=== PATIENT | male | born 1970 | race Caucasian/White ===

== ENCOUNTER 2021-04-28 00:34 | Emergency (ER) | payer OTHER, SELFPAY ==
[2021-04-28] VITALS (7 sets, daily range): BP systolic 137–192; BP diastolic 78–112; PULSE 77–87; RESP 18–24; TEMP 37.1–38; O2SAT 96–98; BMI 33.3
--- NOTE | 2021-04-28 01:09 | CTR_ITS ---
PROCEDURE INFORMATION: Exam: CT Abdomen And Pelvis With Contrast Exam date and time: 04/28/2021 1:09 AM Age: 50 years old Clinical indication: Abdominal pain; Localized; Patient HX: Lower abd pain with diarrhea. TECHNIQUE: Imaging protocol: Computed tomography of the abdomen and pelvis with contrast. Radiation optimization: All CT scans at this facility use at least one of these dose optimization techniques: automated exposure control; mA and/or kV adjustment per patient size (includes targeted exams where dose is matched to clinical indication); or iterative reconstruction. Contrast material: OMNI 300; Contrast volume: 95 ml; Contrast route: INTRAVENOUS (IV); COMPARISON: MRI Lumbar Spine w/o [id number] 04/12/2015 3:52 PM RADIATION DOSE METRICS: Total DLP (mGy-cm): 1925.21 FINDINGS: Mediastinal space: Small hiatal hernia. Small hiatal hernia. Liver: No mass. Gallbladder and bile ducts: No calcified stones. No ductal dilation. Pancreas: No ductal dilation. Spleen: No splenomegaly. Adrenal glands: Normal. No mass. Kidneys and ureters: No hydronephrosis. Stomach and bowel: Colonic diverticulosis with questionable mild thickening of the sigmoid colon. Findings may be due to limited colonic distention or possibly early changes of acute diverticulitis. No dilated bowel loops. No high-grade obstruction. Appendix: No evidence of appendicitis. Intraperitoneal space: There is mild nonspecific mesenteric stranding noted in the lower abdomen/pelvis. Vasculature: No abdominal aortic aneurysm. Lymph nodes: No enlarged lymph nodes. Urinary bladder: Unremarkable as visualized. Reproductive: Prostate gland appears slightly enlarged. Bones/joints: Degenerative changes of the lumbar spine. Soft tissues: Unremarkable. CT/CT abdomen pelvis w con* [id number] IMPRESSION: Colonic diverticulosis with questionable mild thickening of the sigmoid colon. Findings may be due to limited colonic distention or possibly early changes of acute diverticulitis. Radiation Dose CTDIVOL = (mGy): DLP = 1925.21 (mGy-cm)
--- NOTE | 2021-04-28 01:38 | ED_ITS ---
HPI - General Adult General: Chief complaint: Abdominal Pain Stated complaint: abd pain Time Seen by Provider: 04/28/21 00:57 History of Present Illness: HPI narrative: Patient is a 50-year-old male with a history of diabetes, hypertension who presents the emergency room with complaints of worsening lower abdominal pain x 3 days. Patient says that the pain started 3 days ago on Sunday shortly after having diarrhea.Since then, patient reports significantly worsening lower abdominal pain R>L. +Fever today. Patient denies any problem with passing gas, bowel movement, denies any hematochezia or melena. Patient denies any nausea vomiting, but has reported worsening pain. Patient presents emergency room for evaluation. Denies any symptoms including penile discharge or testicular pain. He has no prior abdominal surgical no history of kidney stones. Denies any chest pain, shortness of breath, palpitation, lightheadedness, fatigue at this time Onset: 3 days ago Duration:3 days Location:home Severity: moderate Review of Systems Narrative: Constitutional: +fever, no chills. HEENT: No vision changes CV: No chest pain, no palpitations PULM: no cough, no dyspnea. GI: +lower abdominal pain, no N/V/D. : No dysuria MSKEL: No muscle pain SKIN: No new rashes, no lesions. NEURO: No headache, no focal weakness. HEME: No visible bruises PSYCH: Normal mood Physical Exam Narrative: EXAM NARRATIVE: Head: Atraumatic Eyes: PERRL, conjunctiva without injection ENT: Mucous membrane moist NECK: Supple, ROM intact LUNGS: LCTAB, no crackles/rhonchi CV: RRR ABDOMEN: Soft, +moderate RLQ tenderness to palpation, +mild LLQ abdominal tend erness to palpation, NO guarding rebound, guarding, rigidity. No CVA tenderness to percussion. Neg Moreno/Neg McBurney's point tenderness, no suprabupic tenderness to palpation. EXTREMITY: Normal ROM SKIN: No rash or erythema NEURO: Awake and alert, no focal motor deficits PSYCH: Normal mood and affect : Normal external genitalia, Testicles non-tender b/l, no erythema. Course Vital Signs: Vital signs: Vital Signs Temperature 98.8 F 04/28/21 04:19 Pulse Rate 77 04/28/21 04:19 Respiratory Rate 18 04/28/21 04:19 Blood Pressure 139/78 04/28/21 04:19 Pulse Oximetry 98 04/28/21 04:19 MDM - General Adult MDM Narrative: Medical decision making narrative: 50-year-old male presenting to the emergency room with complaints of diarrhea, worsening lower abdominal pain. On exam, patient is hemodynamically stable noted to be febrile to 100.4. On exam, patient has moderate tenderness to palpation in the right lower quadr ant. No guarding or rebound tenderness to exam within normal limit. Laboratory work-up showed white count 11.8. CT abdomen pelvis showed early diverticulitis. Patient tolerated p.o. in the emergency room. Fever improved with Tylenol. Pain improved in the ED with pain control. Rx: augmentin BID x 7 days, zofran PRN nausea/vomiting Disposition: Discharge. Patient counseled regarding diagnostic impression, treatment plan. Patient given ED strict return precautions to return for continuation, worsening, or development of new symptoms. Instructed to f/u w/ PCP regarding symptoms today. Patient verbalized understanding. Lab Data: Labs: Lab Results 04/28/21 04/28/21 04/28/21 01:30 01:30 01:30 WBC 11.8 10^3/uL H 10 ^3/uL (4.0-10.0) RBC 5.11 10^6/uL 10^6 /uL (4.1-5.3) Hgb 15.2 g/dL g/dL (11.7-16.6) Hct 45.5 % % (42.0-52.0) MCV 89.0 fl fl (80-94) MCH 29.7 pg pg (28.0-34.0) MCHC 33.4 g/dL g/dL (30.0-36.0) RDW 11.7 % L % (12.1-15.1) Plt Count 289 10^3/cmm 10^3 /cmm (130-400) MPV 10.2 fL fL (7.4-10.4) Neut % (Auto) 78.8 % % Lymph % (Auto) 13.8 % % [place] % (Auto) 5.8 % % Eos % (Auto) 0.8 % % Baso % (Auto) 0.4 % % Neut # (Auto) 9.31 10^3/uL H 10 ^3/uL (1.8-7.7) Lymph # (Auto) 1.6 10^3/uL 10^3/ uL (0.8-4.8) [place] # (Auto) 0.7 10^3/uL 10^3/ uL (0.2-0.9) Eos # (Auto) 0.1 10^3/uL 10^3/ uL (0.0-0.8) Baso # (Auto) 0.1 10^3/uL 10^3/ uL (0.0-0.1) Nucleated RBC % (a uto) 0 % % Nucleated RBCs # 0.0 /100WBC /100W BC Sodium 130 mmol/L L mmol /L (136-145) Potassium 4.1 mmol/L mmol/L (3.5-5.1) Chloride 94 mmol/L L mmol/ L (98-107) Carbon Dioxide 25 mmol/L mmol/L (22-29) Anion Gap 15.1 (5-19) BUN 18 mg/dL mg/dL (6-20) Creatinine 0.8 mg/dL mg/dL (0.7-1.2) GFR Calculation 101.5 mL/min mL/m in (90-130) Glucose 251 mg/dL H mg/dL (65-115) Calculated Osmolal ity 280 mOsm/kg L mOs m/kg (285-295) Lactate 1.5 mmol/L mmol/L (0.5-2.2) Calcium 11.0 mg/dL H mg/d L (8.5-10.5) Total Bilirubin 0.8 mg/dL mg/dL (0.15-1.2) AST 10 U/L U/L (0-40) ALT 22 U/L U/L (0-41) Alkaline Phosphata se 75 IU/L IU/L (40-130) Total Protein 7.6 g/dL g/dL (6.6-8.7) Albumin 4.4 g/dL g/dL (3.5-5.2) Globulin 3.2 g/dL g/dL (1.3-4.6) Lipase 12 U/L L U/L (13-60) Urine Color Urine Appearance Urine pH Ur Specific Gravit y Urine Protein Urine Glucose (UA) Urine Ketones Urine Blood Urine Nitrate Urine Bilirubin Urine Urobilinogen Ur Leukocyte Celine ase 04/28/21 02:40 WBC RBC Hgb Hct MCV MCH MCHC RDW Plt Count MPV Neut % (Auto) Lymph % (Auto) [place] % (Auto) Eos % (Auto) Baso % (Auto) Neut # (Auto) Lymph # (Auto) [place] # (Auto) Eos # (Auto) Baso # (Auto) Nucleated RBC % (a uto) Nucleated RBCs # Sodium Potassium Chloride Carbon Dioxide Anion Gap BUN Creatinine GFR Calculation Glucose Calculated Osmolal ity Lactate Calcium Total Bilirubin AST ALT Alkaline Phosphata se Total Protein Albumin Globulin Lipase Urine Color Yellow (Yellow) Urine Appearance Clear (CLEAR) Urine pH 5 (5-7) Ur Specific Gravit y 1.015 (1.005-1.030) Urine Protein Neg (Negative) Urine Glucose (UA) 4+ H (Normal) Urine Ketones Negative (Negative) Urine Blood Neg (Negative) Urine Nitrate Negative (Negative) Urine Bilirubin Neg (Negative) Urine Urobilinogen Norm mg/dL mg/dL (Negative) Ur Leukocyte Celine ase Negative (Negative) Imaging Data^: Other Imaging: Radiologist's impression: [address] [id number] Scan ReportSigned Patient: Brayan Osorio #: [id number]: 1970Acct#:[id number]/Sex: 50 / MADM Date: 04/28/21[facility] Dr: Ordering Provider/Ordering MD: Essie Caceres MD Date of Service: 04/28/21 Procedure(s): CT abdomen pelvis w con* [id number] Accession Number(s): [id number] Report Number: [id number] PROCEDURE INFORMATION: Exam: CT Abdomen And Pelvis With Contrast Exam date and time: 04/28/2021 1:09 AM Age: 50 years old Clinical indication: Abdominal pain; Localized; Patient HX: Lower abd pain with diarrhea. TECHNIQUE: Imaging protocol: Computed tomography of the abdomen and pelvis with contrast. Radiation optimization: All CT scans at this facility use at least one of these dose optimization techniques: automated exposure control; mA and/or kV adjustment per patient size (includes targeted exams where dose is matched to clinical indication); or iterative reconstruction. Contrast material: OMNI 300; Contrast volume: 95 ml; Contrast route: INTRAVENOUS (IV); COMPARISON: MRI Lumbar Spine w/o [id number] 04/12/2015 3:52 PM RADIATION DOSE METRICS: Total DLP (mGy-cm): 1925.21 FINDINGS: Mediastinal space: Small hiatal hernia. Small hiatal hernia. Liver: No mass. Gallbladder and bile ducts: No calcified stones. No ductal dilation. Pancreas: No ductal dilation. Spleen: No splenomegaly. Adrenal glands: Normal. No mass. Kidneys and ureters: No hydronephrosis. Stomach and bowel: Colonic diverticulosis with questionable mild thickening of the sigmoid colon. Findings may be due to limited colonic distention or possibly early changes of acute diverticulitis. No dilated bowel loops. No high-grade obstruction. Appendix: No evidence of appendicitis. Intraperitoneal space: There is mild nonspecific mesenteric stranding noted in the lower abdomen/pelvis. Vasculature: No abdominal aortic aneurysm. Lymph nodes: No enlarged lymph nodes. Urinary bladder: Unremarkable as visualized. Reproductive: Prostate gland appears slightly enlarged. Bones/joints: Degenerative changes of the lumbar spine. Soft tissues: Unremarkable. CT/CT abdomen pelvis w con* [id number] IMPRESSION: Colonic diverticulosis with questionable mild thickening of the sigmoid colon. Findings may be due to limited colonic distention or possibly early changes of acute diverticulitis. Radiation Dose CTDIVOL = (mGy): DLP = 1925.21 (mGy-cm) Dictated By:Juan Fields MDSigned By:Juan Fields MDSigned Date/Time:04/28/21 0343DD/ 0341 Discharge Plan Discharge Patient Disposition: Home Clinical Impression: Abdominal pain Condition: Stable Prescriptions: New Augmentin 875-125 mg tablet 1 tab PO BID 7 Days Qty: 14 RF: 0 Zofran 4 mg tablet 4 mg PO TID PRN (Reason: nausea and vomiting) 5 Days Qty: 15 RF: 0 Discharge Orders: Discharge ED (Routine); Ordered 04/28/21 Ordered By: Essie Caceres Discharge Diet: Advance as tolerated Discharge Activity: Resume usual activity Patient Instructions: Diverticulitis (ED) Activity Restrictions/Additional Instructions: Come back to the emergency room if you have any worsening pain, if you have any nausea or vomiting, if you cannot hold down food or medicine, or if you have any new or concerning complaints. Coding Level of Care Code ED Copy Center Associate for Yuriy Griffin
[2021-04-28] MEDS: famotidine 20 mg/2 mL INJ IVP (01:39)
[2021-04-28] MEDS: morphine 4 mg/mL SDV 1 mL IVP (01:39)
[2021-04-28] MEDS: acetaminophen 500 mg Tablet 1000 MG PO (01:39)
[2021-04-28] MEDS: sodium chloride 0.9% 1,000 ML 999 ML IV (01:40)
[2021-04-28 01:49] LABS: Basophils # 0.1 10^3/uL (0.0-0.1); Basophils % 0.4 %; Eosinophils # 0.1 10^3/uL (0.0-0.8); Eosinophils % 0.8 %; Hematocrit 45.5 % (42.0-52.0); Hemoglobin 15.2 g/dL (11.7-16.6); Lymphocytes # 1.6 10^3/uL (0.8-4.8); Lymphocytes % 13.8 %; Mean Corpuscular HGB Conc 33.4 g/dL (30.0-36.0); Mean Corpuscular Hemoglobin 29.7 pg (28.0-34.0); Mean Platelet Volume 10.2 fL (7.4-10.4); Monocytes # 0.7 10^3/uL (0.2-0.9); Monocytes % 5.8 %; Neutrophils # 9.31 10^3/uL (1.8-7.7); Neutrophils % 78.8 %; Nucleated Red Blood Cells % 0 %; Platelet Count 289 10^3/cmm (130-400); Red Blood Count 5.11 10^6/uL (4.1-5.3); Red Cell Distribution Width 11.7 % (12.1-15.1); White Blood Count 11.8 10^3/uL (4.0-10.0)
[2021-04-28] MEDS: iohexol 300 mg/mL 100 mL Btl IV (01:51)
[2021-04-28] MEDS: HYDROmorphone 1 mg/mL INJ 1 mL 0.5 MG IVP (02:03)
[2021-04-28 02:06] LABS: Alanine Aminotransferase 22 U/L (0-41); Albumin Level 4.4 g/dL (3.5-5.2); Alkaline Phosphatase 75 IU/L (40-130); Anion Gap 15.1 (5-19); Aspartate Amino Transferase 10 U/L (0-40); Blood Urea Nitrogen 18 mg/dL (6-20); Carbon Dioxide 25 mmol/L (22-29); Chloride 94 mmol/L (98-107); Globulin 3.2 g/dL (1.3-4.6); Glomerular Filtration Rate 101.5 mL/min (90-130); Glucose 251 mg/dL (65-115); Lipase 12 U/L (13-60); Osmolality Calculated 280 mOsm/kg (285-295); Potassium 4.1 mmol/L (3.5-5.1); Sodium 130 mmol/L (136-145); Total Bilirubin 0.8 mg/dL (0.15-1.2); Total Protein 7.6 g/dL (6.6-8.7)
[2021-04-28 02:07] LABS: Lactate (Lactic Acid level) 1.5 mmol/L (0.5-2.2)
[2021-04-28 02:56] LABS: Add Urine Microscopic? NO; Charge for UA Resulting for Rev
[2021-04-28 02:58] LABS: Bilirubin Urine Neg (Negative); Blood Urine Neg (Negative); Glucose Urine UA 4+ (Normal); Ketones Urine Negative (Negative); Leukocyte Esterase Urine Negative (Negative); Nitrate Urine Negative (Negative); Protein Urine Neg (Negative); Specific Gravity, Urine 1.015 (1.005-1.030); Urine Appearance Clear (CLEAR); Urine Color Yellow (Yellow); Urobilinogen Urine Norm (Negative); pH Urine 5 (5-7)
[2021-04-28] MEDS: HYDROmorphone 1 mg/mL INJ 1 mL IVP (03:20)
[2021-04-28] MEDS: amoxicillin-clav 875-125 mg Tablet 1 TAB PO (03:57)
== END 2021-04-28 04:10 | disposition home or self-care (01) ==
PROVIDERS: Emergency Provider Emergency Medicine
DX: R10.9 Unspecified abdominal pain (principal)
CPT/HCPCS: 74177; 80053; 81003; 83605; 83690; 85025; 87040; 87205; 96361; 96374; 96375; 96376; 99284; J1170; J2270; J3490; J7030; Q9967

== ENCOUNTER 2021-06-28 11:58 | Emergency (ER) | payer OTHER, SELFPAY ==
[2021-06-28 12:07] VITALS: BP 141/82; PULSE 70; RESP 18; TEMP 36.3; O2SAT 96
--- NOTE | 2021-06-28 12:19 | US_ITS ---
WS: [id number] ULTRASOUND ABDOMEN LIMITED CLINICAL INFORMATION: RUQ pain COMPARISON: None. FINDINGS: Liver Size: Enlarged Craniocaudal length: 19.7 cm. Echogenicity: Normal. Surface nodularity: None. Mass (size and location): None. Bile ducts Intrahepatic ducts: Normal. Common bile duct diameter: 0.4 cm. Gallbladder No gallbladder wall thickening. Cholesterolosis gallbladder wall. Gallstones: None. Gallbladder sludge: None. Gallbladder wall thickening: None. Pericholecystic fluid: None. Sonographic Moreno sign: Tenderness right upper quadrant with transducer compression. Pancreas Normal as visualized. Right kidney: Normal. Hydronephrosis: None. Size: 11.9 cm x 5.9 cm x 7.2 cm. Abdominal aorta and IVC Visualized portions are normal. Ascites: None. US/US gall bladder [id number] IMPRESSION: 1. Gallbladder wall cholesterolosis. No cholelithiasis or sludge. 2. Right upper quadrant tenderness reported by ammunition officer during examination. Gallbladder function could be further evaluated with HIDA scan if indicated. 3. No gallbladder wall thickening or pericholecystic fluid. 4. Normal common bile duct. No intrahepatic biliary ductal dilatation. 5. No hydronephrosis in right kidney. 6. Hepatomegaly.
[2021-06-28 16:21] LABS: Basophils # 0.1 10^3/uL (0.0-0.1); Basophils % 0.7 %; Eosinophils # 0.1 10^3/uL (0.0-0.8); Eosinophils % 1.1 %; Hemoglobin 15.9 g/dL (11.7-16.6); Lymphocytes # 2.7 10^3/uL (0.8-4.8); Lymphocytes % 29.4 %; Mean Corpuscular HGB Conc 33.1 g/dL (30.0-36.0); Mean Corpuscular Hemoglobin 28.6 pg (28.0-34.0); Mean Corpuscular Volume 86.5 fl (80-94); Mean Platelet Volume 9.8 fL (7.4-10.4); Monocytes # 0.6 10^3/uL (0.2-0.9); Monocytes % 7.1 %; Neutrophils # 5.57 10^3/uL (1.8-7.7); Neutrophils % 61.4 %; Nucleated Red Blood Cells % 0 %; Platelet Count 318 10^3/cmm (130-400); Red Blood Count 5.55 10^6/uL (4.1-5.3); Red Cell Distribution Width 11.7 % (12.1-15.1); White Blood Count 9.1 10^3/uL (4.0-10.0)
[2021-06-28 17:15] LABS: Alanine Aminotransferase 22 U/L (0-41); Albumin Level 4.4 g/dL (3.5-5.2); Alkaline Phosphatase 67 IU/L (40-130); Anion Gap 16.7 (5-19); Aspartate Amino Transferase 15 U/L (0-40); Blood Urea Nitrogen 14 mg/dL (6-20); Calcium 10.1 mg/dL (8.5-10.5); Carbon Dioxide 25 mmol/L (22-29); Chloride 99 mmol/L (98-107); Globulin 2.8 g/dL (1.3-4.6); Glucose 113 mg/dL (65-115); Lipase 17 U/L (13-60); Osmolality Calculated 285 mOsm/kg (285-295); Potassium 3.7 mmol/L (3.5-5.1); Sodium 137 mmol/L (136-145); Total Bilirubin 0.7 mg/dL (0.15-1.2); Total Protein 7.2 g/dL (6.6-8.7)
--- NOTE | 2021-06-28 17:20 | W.ED.ABDPA2 ---
HPI - Abdominal Pain General: Chief Complaint: Abdominal Pain Stated Complaint: GALLBLADDER PROB P/DR MUNOZ Time Seen by Provider: 06/28/21 17:20 History of Present Illness: HPI narrative: 51-year-old male patient was sent to the ER by Dr. Peacock for concerns of epigastric pain. Dr. Peacock felt the patient probably had gallbladder disease and thought he probably needed to have surgery today. Patient appears well. Patient appears in mild to moderate pain. Patient denies any nausea or vomiting. Patient denies any diarrhea or blood in stool. Patient reports the pains been going on for about 6 months off and off. Review of Systems General: Reports: 10 or more systems reviewed and unremarkable except in HPI and below GI: Reports: abdominal pain Physical Exam Const: COMMON NORMALS: no acute distress and patient oriented x3 GENERAL APPEARANCE: cooperative HENMT: COMMON NORMALS: normocephalic and Normal external nose present HEAD & SCALP: normal to inspection and normocephalic NOSE: Normal external nose present MOUTH: Normal oral and palatal mucosa present Eye: GENERAL EYE: appearance normal, both eyes and all related structures Neck/C-Spine: COMMON NORMALS: full ROM Chest: COMMONS NORMALS: normal inspection of the chest Resp: COMMON NORMALS: normal respiratory effort EFFORT & INSPECTION: Yes able to speak in complete sentences Cardio: COMMON NORMALS: regular rate and regular rhythm RATE: regular rate RHYTHM: regular rhythm GI: COMMON NORMALS: Soft to palpation AUSCULTATION: Yes normoactive bowel sounds PALPATION: Yes Soft to palpation and Yes Tenderness to palpation present (GI) (Midepigastric) Back/Pelvis: COMMON NORMALS: thoracic and lumbar spine normal to inspection Extremity: COMMON NORMALS: normal to inspection Neuro: COMMON NORMALS: patient oriented x3 and moves all extremities Psych: COMMON NORMALS: mental status grossly normal and cooperative Skin: COMMON NORMALS: no rashes or lesions noted GENERAL SKIN EXAM: no rashes or lesions noted Course Vital Signs: Vital signs: Vital Signs Temperature 97.4 F L 06/28/21 12:07 Pulse Rate 70 06/28/21 12:07 Respiratory Rate 18 06/28/21 12:07 Blood Pressure 141/82 06/28/21 12:07 Pulse Oximetry 96 06/28/21 12:07 MDM - Abdominal Pain MDM Narrative: Medical decision making narrative: 51-year-old male patient comes in today for complaints of midepigastric abdominal pain. Patient states that he has been having the pain on and off for the last 6 months. Patient states that he has had [address] scans which have been unremarkable. Exam notes some mid epigastric tenderness on deep palpation. Bowel sounds are present. Skin is warm and dry. Vital signs are normal. Differential diagnosis includes but not limited to cholecystitis, pancreatitis, bowel obstruction. Ultrasound of the gallbladder wall abnormalities not suggestive of cholecystitis without any sludge or stones. Laboratory values were unremarkable. I reviewed the exam with patient recommending that he have a HIDA scan done as per recommendations from radiologist. I wanted to set the patient up with surgery for further evaluation in the office. Patient became upset and felt that he was supposed to have surgery done today and left refusing further treatment. Lab Data: Labs: Lab Results 06/28/21 06/28/21 16:17 16:17 WBC 9.1 10^3/uL 10^3/ uL (4.0-10.0) RBC 5.55 10^6/uL H 10 ^6/uL (4.1-5.3) Hgb 15.9 g/dL g/dL (11.7-16.6) Hct 48.0 % % (42.0-52.0) MCV 86.5 fl fl (80-94) MCH 28.6 pg pg (28.0-34.0) MCHC 33.1 g/dL g/dL (30.0-36.0) RDW 11.7 % L % (12.1-15.1) Plt Count 318 10^3/cmm 10^3 /cmm (130-400) MPV 9.8 fL fL (7.4-10.4) Neut % (Auto) 61.4 % % Lymph % (Auto) 29.4 % % [place] % (Auto) 7.1 % % Eos % (Auto) 1.1 % % Baso % (Auto) 0.7 % % Neut # (Auto) 5.57 10^3/uL 10^3 /uL (1.8-7.7) Lymph # (Auto) 2.7 10^3/uL 10^3/ uL (0.8-4.8) [place] # (Auto) 0.6 10^3/uL 10^3/ uL (0.2-0.9) Eos # (Auto) 0.1 10^3/uL 10^3/ uL (0.0-0.8) Baso # (Auto) 0.1 10^3/uL 10^3/ uL (0.0-0.1) Nucleated RBC % (a uto) 0 % % Nucleated RBCs # 0.0 /100WBC /100W BC Sodium 137 mmol/L mmol/L (136-145) Potassium 3.7 mmol/L mmol/L (3.5-5.1) Chloride 99 mmol/L mmol/L (98-107) Carbon Dioxide 25 mmol/L mmol/L (22-29) Anion Gap 16.7 (5-19) BUN 14 mg/dL mg/dL (6-20) Creatinine 0.7 mg/dL mg/dL (0.7-1.2) GFR Calculation 118.0 mL/min mL/m in (90-130) Glucose 113 mg/dL mg/dL (65-115) Calculated Osmolal ity 285 mOsm/kg mOsm/ kg (285-295) Calcium 10.1 mg/dL mg/dL (8.5-10.5) Total Bilirubin 0.7 mg/dL mg/dL (0.15-1.2) AST 15 U/L U/L (0-40) ALT 22 U/L U/L (0-41) Alkaline Phosphata se 67 IU/L IU/L (40-130) Total Protein 7.2 g/dL g/dL (6.6-8.7) Albumin 4.4 g/dL g/dL (3.5-5.2) Globulin 2.8 g/dL g/dL (1.3-4.6) Lipase 17 U/L U/L (13-60) Discharge Plan Discharge Patient Disposition: Home Clinical Impression: Abdominal pain Qualifiers: Abdominal location: epigastric Qualified Code(s): R10.13 - Epigastric pain Condition: Stable Discharge Orders: Discharge ED (Routine); Ordered 06/28/21 Ordered By: Jamin Wesley Referrals: Magdi Munoz MD [Primary Care Provider] - Discharge Diet: Usual diet Discharge Activity: Increase activity as tolerated Patient Instructions: Abdominal Pain (ED), Opioid Safety Activity Restrictions/Additional Instructions: Follow-up with surgeon for further evaluation and treatment. Coding Level of Care Code ED Straddle Truck Operator for Yuriy Griffin
== END 2021-06-28 17:33 | disposition home or self-care (01) ==
PROVIDERS: Physician Assistant; Emergency Provider Nurse Practitioner Family; PCP Family Medicine
DX: R10.13 Epigastric pain (principal)
CPT/HCPCS: 76705; 80053; 83690; 85025; 99281

== ENCOUNTER → 2021-06-29 13:54 | Outpatient (BNVA) | payer OTHER, SELFPAY | PROVIDERS: PCP Family Medicine; Referring Provider Family Medicine; Visit Provider Surgery | DX: Z20.822 Contact with and (suspected) exposure to COVID-19 (principal); R10.13 Epigastric pain | CPT/HCPCS: 87635 ==

== ENCOUNTER 2021-07-01 07:23 | Day surgery (SDC) | payer OTHER, SELFPAY ==
[2021-06-30 09:38] VITALS: BMI 33.3
--- NOTE | 2021-07-01 07:46 | ANES.PREANE2 ---
Pre-Anesthetic Assessment Pre-Anesthetic Assessment: Height/Weight: Height 1.88 m Weight 117.934 kg Proposed Procedure: Operation Date: 07/01/21 08:30 Proposed Procedures p EGD 84026 R10.13(Not Applicable) - Cipriano Sung MD Was Beta Merline taken within 24 hours: N/A Was Clonidine taken within 24 hours: N/A Social: Social History: No alcohol and No tobacco Exam: Pre-Anes Outpt Exam: alert, oriented x 3, clear to auscultation bilaterally and regular rate & rhythm Airway: Submandibular: WNL Cervical ROM: WNL MP: 2 CV/HEM: CV/HEM: HTN GI: GI: GERD Metabolic: Metabolic: DM and Morbid obesity Anesthetic Plan: ASA status: 3 Anesthesia: MAC Risk of > 500 ml blood loss (7ml/kg in children): No PFSH Anesthesia PFSH: Medical History (Updated 06/29/21 @ 13:40 by Cipriano Sung MD) Diabetes Hypertension Surgical History (Updated 06/29/21 @ 13:40 by Cipriano Sung MD) H/O esophagogastroduodenoscopy Family History (Updated 06/29/21 @ 13:31 by Yomaira Padilla) Other Cancer Denies family history of Diabetes CAD (coronary artery disease) Dementia Chronic kidney disease (CKD) Stroke Social History (Updated 06/29/21 @ 13:31 by Yomaira Padilla) Smoking and tobacco status: never smoked Alcohol intake: current Alcohol intake frequency: few times a week Lives independently: Yes Household members: spouse and children Marital status: Data Anesthesia Cardiac Studies: No Data to Display
[2021-07-01 07:55] VITALS: BP 127/86; PULSE 69; RESP 18; TEMP 36.5; O2SAT 98
[2021-07-01] MEDS: sodium chloride 0.9% 1,000 ML 30 ML IV (08:02)
--- NOTE | 2021-07-01 08:12 | W.PM.OPSUD ---
Surgery/Procedure H&P Update DATE OF PROCEDURE: July 01, 2021 DATE H&P PERFORMED: 06/29/21 H&P UPDATE INFORMATION: I have reviewed H&P completed within last 30 days, I have examined patient prior to procedure and No changes to prior documentation PREOP DIAGNOSIS: upper gi symptoms PLANNED PROCEDURE: Operation Date: 07/01/21 08:30 Proposed Procedures p EGD 88467 R10.13(Not Applicable) - Cipirano Sung MD
[2021-07-01 09:09] VITALS: BP 137/88; PULSE 64; RESP 18; TEMP 36.6; O2SAT 95
[2021-07-01 09:24] VITALS: BP 137/88; PULSE 66; RESP 18; O2SAT 96
--- NOTE | 2021-07-01 09:29 | PC.NURSE ---
Pt states his abdominal pain is chronic, reports no new pain.
--- NOTE | 2021-07-01 12:13 | ANE.PACU2 ---
Inpatient post-anesthesia follow up: Airway intact: Yes Vital signs: Temperature 97.9 F Pulse Rate 66 Respiratory Rate 18 Blood Pressure 137/88 Pulse Oximetry 96 Oxygen Delivery Me thod Room Air Oxygen Flow Rate 2 Fraction of Inspir ed Oxygen Hydration adequate: Yes Nausea and vomiting: No Pain level: 1 Mental status: Baseline
== END 2021-07-01 09:40 | disposition home or self-care (01) ==
PROVIDERS: PCP Family Medicine; Visit Provider Surgery
PROC: 0DJD8ZZ Inspection of Lower Intestinal Tract, Via Natural or Artificial Opening Endoscopic (ICD-10-PCS; CPT 45378; principal; 2021-07-01 08:30)
DX: K29.50 Unspecified chronic gastritis without bleeding (principal); R10.13 Epigastric pain; R10.12 Left upper quadrant pain; R10.11 Right upper quadrant pain; K44.9 Diaphragmatic hernia without obstruction or gangrene; I10 Essential (primary) hypertension; K21.9 Gastro-esophageal reflux disease without esophagitis; E11.9 Type 2 diabetes mellitus without complications; Z79.84 Long term (current) use of oral hypoglycemic drugs; E66.01 Morbid (severe) obesity due to excess calories; Z68.33 Body mass index [BMI] 33.0-33.9, adult
CPT/HCPCS: 43239; 88305; 96360; J2704; J3490; J7030

== ENCOUNTER 2021-07-11 09:35 | Outpatient (CLI) | payer OTHER, SELFPAY ==
--- NOTE | 2021-07-11 10:00 | NM_ITS ---
WS: [id number] NUCLEAR MEDICINE HIDA SCAN CLINICAL INFORMATION: R10.13 - Epigastric pain TECHNIQUE: Following intravenous administration of 8.6 mCi of technetium 99m mebrofenin, images of th e abdomen were obtained over the course of 60 minutes. Next, gallbladder ejection fraction was determ ined by obtaining preprandial and one-hour postprandial images of the gallbladder following oral sonny stion of Ensure. COMPARISON: June 28, 2021 FINDINGS: Normal hepatic uptake at 5 minutes. Gallbladder is visualized by 15 minutes. No evidence of acute cho lecystitis. Normal common bile duct and small bowel activity. Gallbladder ejection fraction 55% within normal limits. No evidence of chronic cholecystitis. NM/NM hepatobiliary w phar* [id number] IMPRESSION: 1. No evidence of acute or chronic cholecystitis. 2. Gallbladder ejection fraction 55% within normal limits
== END 2021-07-11 09:36 | disposition home or self-care (01) ==
LOC: NM 09:35
PROVIDERS: PCP Family Medicine; Visit Provider Surgery
DX: R10.13 Epigastric pain (principal)
CPT/HCPCS: 78227; A9537

== ENCOUNTER → 2022-02-03 09:43 | Outpatient (BNVA) | payer OTHER, SELFPAY | PROVIDERS: PCP Family Medicine; Visit Provider Family Medicine | DX: I10 Essential (primary) hypertension (principal); E11.9 Type 2 diabetes mellitus without complications; Z13.220 Encounter for screening for lipoid disorders | CPT/HCPCS: 80053; 80061; 83036; 85025 ==

== ENCOUNTER 2022-02-17 10:48 | Outpatient (CLI) | payer OTHER, SELFPAY ==
[2022-02-17 11:51] LABS: Calcium 9.8 mg/dL (8.5-10.5)
== END 2022-02-17 10:49 | disposition home or self-care (01) ==
PROVIDERS: PCP Family Medicine; Visit Provider Internal Medicine Gastroenterology
DX: E83.52 Hypercalcemia (principal)
CPT/HCPCS: 36415; 82310

== ENCOUNTER 2022-09-22 12:07 | Outpatient (CLI) | payer OTHER, SELFPAY ==
--- NOTE | 2022-09-22 12:19 | XR_ITS ---
WS: [id number] Exam: XR lumbar spine 6V w f/e [id number] Date/Time of Exam: 09/22/2022 12:31 PM Reason For Exam: Lumbar radiculopathy with weakness on the left Comparison 04/01/2015. No acute fracture or dislocation. Disc spaces are preserved. Mild spondylosis. Large bridging spurs n oted at L1-2 as well as the lower visualized thoracic vertebra. No flexion or extension instability. Posterior elements are intact. Facet arthropathy at L5-S1. XR/XR lumbar spine 6V w f/e [id number] IMPRESSION: 1. No flexion or extension instability identified. 2. Degenerative changes and spondylosis.
== END 2022-09-22 12:08 | disposition home or self-care (01) ==
LOC: RAD 12:08
PROVIDERS: PCP Family Medicine; Visit Provider Family Medicine
DX: M54.16 Radiculopathy, lumbar region (principal); R53.1 Weakness; M47.816 Spondylosis without myelopathy or radiculopathy, lumbar region; E53.8 Deficiency of other specified B group vitamins; Z13.220 Encounter for screening for lipoid disorders; E11.9 Type 2 diabetes mellitus without complications; Z51.81 Encounter for therapeutic drug level monitoring
CPT/HCPCS: 72114; 80053; 80061; 82607; 83036; 85025

== ENCOUNTER 2022-09-28 08:17 | Outpatient (CLI) | payer OTHER, SELFPAY ==
--- NOTE | 2022-09-28 08:45 | MR_ITS ---
WS: [id number] MRI LUMBAR SPINE NONCONTRAST TECHNIQUE: Sagittal T1, T2 and STIR imaging. Axial T1 and T2 imaging. CLINICAL INFORMATION: Weaknes LLE, Bilateral radiculopathy COMPARISON: MRI 2015 FINDINGS: Mild lumbar curve. No acute compression. Mild disc bulging throughout the lumbar spine. Hypertrophic changes lower thoracic spine. L1-L2: Mild annular bulging. Slight effacement of the ventral thecal sac. Mild facet arthropathy. Min imal narrowing of the LEFT subarticular recess. L2-L3: Mild annular bulging. Slight impingement on the RIGHT subarticular recess and traversing RIGHT L3 nerve root. Mild facet arthropathy. Foramen are patent. L3-L4: Mild annular bulging with impingement on the traversing LEFT L4 nerve root in the subarticular recess. Moderate facet arthropathy. RIGHT foraminal protrusion with mild RIGHT greater than LEFT for aminal narrowing. L4-L5: Mild annular bulging. Narrowing of the LEFT subarticular recess. Mild LEFT greater than RIGHT foraminal narrowing. Moderate facet arthropathy. L5-S1: No significant disc bulging. Moderate facet arthropathy. Foramen are patent. Small RIGHT renal cysts. MR/MR lumbar spine wo con* [id number] IMPRESSION: 1. Mild lumbar curve. No acute compression. No high-grade central canal stenos is. 2. Disc bulging L2-L3 L3-L4 L4-L5 has progressed compared to 2015. 3. Mild central canal stenosis L3-L4 and L4-L5 with slight impingement on the traversing LEFT L4 and LEFT L5 nerve roots in the subarticular recess. 4. Mild annular bulging L2-L3 with slight impingement on the traversing RIGHT L3 nerve root. 5. Mild RIGHT L3-L4 and LEFT L4-L5 foraminal narrowing. 6. Moderate facet arthropathy L3-L5.
== END 2022-09-28 08:18 | disposition home or self-care (01) ==
LOC: RAD 08:22
PROVIDERS: PCP Family Medicine; Visit Provider Family Medicine
DX: M21.372 Foot drop, left foot (principal); M51.16 Intervertebral disc disorders with radiculopathy, lumbar region; M48.061 Spinal stenosis, lumbar region without neurogenic claudication
CPT/HCPCS: 72148

== ENCOUNTER → 2022-10-11 05:46 | Day surgery (SDC) | payer OTHER, SELFPAY ==
[2022-10-10 09:18] VITALS: BMI 29.5
--- NOTE | 2022-10-10 10:21 | ANES.PREANE2 ---
Pre-Anesthetic Assessment Height/Weight: Height 1.88 m Weight 104.326 kg Preop Diagnosis: upper gi symptoms Operation Date: 10/11/22 07:00 Proposed Procedures p Lumbar Spine Decompression(Left) - Bean Little DO Familial anesthetic complications: none Was Beta Merline taken within 24 hours: Yes Was Clonidine taken within 24 hours: N/A Social No alcohol and No tobacco Exam alert, oriented x 3, clear to auscultation bilaterally and regular rate & rhythm Airway Submandibular: within normal limits Cervical ROM: within normal limits Mallampati: Class II Dentition: chipped CV/HEM Hypertension GI Gastroesophageal Reflux Disease Inflammatory bowel Metabolic Diabetes Mellitus and Hyperlipidemia Anesthetic Plan ASA status: 2 Anesthesia: General Medications/Allergies Home Medications Medication Instructions Recorded Confirmed Last Taken Type blood sugar diagnostic (OneTouch #100 ea 09/22/22 10/03/22 Unknown Rx Verio test strips) esomeprazole magnesium 40 mg 40 mg PO DAILY 09/22/22 10/10/22 10/10/22 07:00 History capsule,delayed release glipizide 5 mg tablet 5 mg PO BID #180 tabs 09/22/22 10/10/22 10/10/22 06:00 Rx mesalamine 1.2 gram tablet,delayed 4.8 g PO DAILY 09/22/22 10/10/22 10/09/22 20:00 History release sitagliptin phosphate 100 mg tablet 100 mg PO DAILY #90 tabs 09/22/22 10/10/22 10/10/22 06:00 Rx metoprolol tartrate 100 mg tablet 100 mg PO BID #180 tabs 09/25/22 10/10/22 10/10/22 06:00 Rx atorvastatin 10 mg tablet 10 mg PO DAILY 10/10/22 10/10/22 10/10/22 06:00 History lisinopril 20 20 tab PO 1XD 10/10/22 10/10/22 10/10/22 07:00 History mg-hydrochlorothiazide 12.5 mg tablet Allergies Allergy/AdvReac Type Severity Reaction Status Date / Time No Known Allergies Allergy Verified 10/03/22 08:25 [facility] Anesthesia Medical History Diabetes Hypertension Inflammatory bowel disease Surgical History H/O esophagogastroduodenoscopy (07/01/21) Family History Other Cancer Denies family history of Diabetes CAD (coronary artery disease) Dementia Chronic kidney disease (CKD) Stroke Social History Smoking and tobacco status: never smoked Alcohol intake: current Alcohol intake frequency: few times a week Lives independently: Yes Household members: spouse and children Marital status: Data Anesthesia Cardiac Studies: No Data to Display
[2022-10-11] VITALS (8 sets, daily range): BP systolic 96–134; BP diastolic 60–83; PULSE 54–61; RESP 10–18; TEMP 36.2–36.9; O2SAT 92–98
--- NOTE | 2022-10-11 06:39 | W.PM.OPSUD ---
Surgery/Procedure H&P Update DATE OF PROCEDURE: October 11, 2022 DATE H&P PERFORMED: 10/03/22 H&P UPDATE INFORMATION: I have reviewed H&P completed within last 30 days, I have examined patient prior to procedure and No changes to prior documentation PREOP DIAGNOSIS: Left-sided foot drop, lumbar radiculopathy PLANNED PROCEDURE: Operation Date: 10/11/22 07:00 Proposed Procedures p Lumbar Spine Decompression(Left) - Bean Little DO
[2022-10-11] MEDS: sodium chloride 0.9% 1,000 ML 30 ML IV (06:44)
[2022-10-11] MEDS: HYDROmorphone 1 mg/mL INJ 1 mL 0.5 MG IVP (06:50)
[2022-10-11] MEDS: ceFAZolin 2,000 MG in sodium chloride 0.9% (plus) 50 ML 100 MG IV (06:59)
--- NOTE | 2022-10-11 07:10 | P.ANESUD_ITS ---
Pre-Anesthetic Update Pre-Anesthetic Assessment: Date of Surgery/Procedure: 10/11/22 Preop Bernice gnosis: Left-sided foot drop, lumbar radiculopathy Proposed Procedure: Operation Date: 10/11/22 07:00 Proposed Procedures p Lumbar Spine Decompression(Left) - Bean Little, DO Any changes to Pre-Anesthetic Assessment?: No Last Intake: Intake Last Liquid Date 10/10/22 Last Liquid Time 18:00 Last Solid Date 10/10/22 Last Solid Time 18:00 Vitals: Temperature 98.5 F 10/11/22 06:16 Temperature Source Temporal Artery S can 10/11/22 06:16 Pulse Rate 56 L 10/11/22 06:16 Respiratory Rate 18 10/11/22 06:16 Blood Pressure 134/83 10/11/22 06:16 Blood Pressure Rcystal n 100 10/11/22 06:16 Pulse Oximetry 98 10/11/22 06:16 Oxygen Delivery Me thod 10/11/22 06:19 Exam: Pre-Anes Outpt Exam: alert, oriented x 3, clear to auscultation bilaterally and regular rate & rhythm Cardiac Studies: No Data to Display
[2022-10-11] MEDS: lidocaine-epi 1% 20 mL INJ INJECTION (07:33)
--- NOTE | 2022-10-11 08:33 | XR_ITS ---
WS: [id number] XR lumbar spine 1V [id number] REASON FOR EXAM: OR PICS FINDINGS: Surgical instrument overlying the left L3-L4. XR/XR lumbar spine 1V [id number] IMPRESSION: Lumbar spine localization in surgery as above.
--- NOTE | 2022-10-11 08:45 | PM.OP ---
Operative Report Date of procedure: October 11, 2022 Pre-op diagnosis: Preop Diagnosis Left-sided foot drop, lumbar radiculopathy Post-op diagnosis: same Procedure done: 1. L3/4 laminectomy with partial facetectomy 2. L4/5 laminectomy with partial facetectomy Surgeon: Bean Little Estimated blood loss (mL): 10 Procedure: 1. L3/4 laminectomy with partial facetectomy 2. L4/5 laminectomy with partial facetectomy Patient is brought to the operative suite. After undergoing anesthesia they are placed in the prone position. All areas of impingement are well padded. Patient is then prepped and draped in the normal sterile fashion. A skin incision is made over the L3/4 level. This is confirmed under c-arm guidance. A series of dilators are passed and the tubular retractor is docked on the L3 lamina. A bovie is used to clear the soft tissue off the lamina and the L 3/4 facet joint. A high speed moses is then used to perform the laminectomy and take down the medial aspect of the L 3/4 facet joint. A kerrison rongeure was then used to take down the remaining lamina and smooth the edge of the laminectomy up to the point where the ligamentum flavum attaches. Attention was then brought to the medial aspect of the facet joint. The remaining medial aspect of the superior and inferior aspect of the facet joint were taken down with the kerrison from the pedicle of L3 to L 4. The facet joint had significant hypertrophy. Attention was then brought to the Ligamentum Flavum. The ligament was taken down from the lamina of L3 to L4 and out medially to the remaining facet joint. The ligament was thick. The dura was then exposed. The dura was in good repair. The L3 nerve was then traced with a curette out the L3/4 foramen and found to be adequately decompressed. The L4 nerve was traced with a curette around the L4 pedicle. The lateral recess was opened with a kerrison helping to further decompress the L4 nerve. Wound is then irrigated copiously with saline and surgiflo is used to stop any bleeding. The tubular retractor is removed and the A skin incision is made over the L4/5 level. This is confirmed under c-arm guidance. A series of dilators are passed and the tubular retractor is docked on the L4 lamina. A bovie is used to clear the soft tissue off the lamina and the L 4/5 facet joint. A high speed moses is then used to perform the laminectomy and take down the medial aspect of the L 4/5 facet joint. A kerrison rongeure was then used to take down the remaining lamina and smooth the edge of the laminectomy up to the point where the ligamentum flavum attaches. Attention was then brought to the medial aspect of the facet joint. The remaining medial aspect of the superior and inferior aspect of the facet joint were taken down with the kerrison from the pedicle of L4 to L 5. The facet joint had significant hypertrophy. Attention was then brought to the Ligamentum Flavum. The ligament was taken down from the lamina of L4 to L5 and out medially to the remaining facet joint. The ligament was thick. The dura was then exposed. The dura was in good repair. The L4 nerve was then traced with a curette out the L4/5 foramen and found to be adequately decompressed. The L5 nerve was traced with a curette around the L5 pedicle. The lateral recess was opened with a kerrison helping to further decompress the L5 nerve. Wound is then irrigated copiously with saline and surgiflo is used to stop any bleeding. The tubular retractor is removed and the wound is closed with vicryl and monocryl suture. Glue is then used to protect the wound. A sterile dressing is then placed. Patient was then placed in the supine position and transferred to the PACU in stable condition.
[2022-10-11] MEDS: HYDROcodone-acetaminophen 5-325 mg Tablet 1 TAB PO (09:36)
--- NOTE | 2022-10-11 15:29 | ANE.PACU2 ---
Inpatient post-anesthesia follow up: Airway intact: Yes Vital signs: Temperature 97.6 F Pulse Rate 59 Respiratory Rate 16 Blood Pressure 109/68 Pulse Oximetry 96 Oxygen Delivery Me thod Room Air Oxygen Flow Rate 6 Fraction of Inspir ed Oxygen Hydration adequate: Yes Nausea and vomiting: No Pain level: 3 Mental status: Baseline
[2022-10-12 06:38] LABS: Glucose Point of Care 140 mg/dL (70-110)
== END | disposition home or self-care (01) ==
PROVIDERS: PCP Family Medicine; Visit Provider Orthopaedic Surgery
PROC: (CPT 63005; principal; 2022-10-11 07:00)
DX: M54.16 Radiculopathy, lumbar region (principal); M48.061 Spinal stenosis, lumbar region without neurogenic claudication; M51.36 Other intervertebral disc degeneration, lumbar region; M21.372 Foot drop, left foot; E11.9 Type 2 diabetes mellitus without complications; I10 Essential (primary) hypertension; E78.5 Hyperlipidemia, unspecified; K21.9 Gastro-esophageal reflux disease without esophagitis; Z79.84 Long term (current) use of oral hypoglycemic drugs
CPT/HCPCS: 63047; 63048; 36416; 72020; 76000; 82962; J0131; J0330; J0690; J1100; J1170; J1200; J1885; J2250; J2405; J2704; J2710; J3010; J3490; J7030

== ENCOUNTER → 2022-12-12 13:18 | Outpatient (BNVA) | payer OTHER, SELFPAY | PROVIDERS: PCP Family Medicine; Visit Provider Family Medicine | DX: E53.8 Deficiency of other specified B group vitamins (principal); G62.9 Polyneuropathy, unspecified; E83.52 Hypercalcemia; E11.9 Type 2 diabetes mellitus without complications; Z51.81 Encounter for therapeutic drug level monitoring; M25.50 Pain in unspecified joint; R29.818 Other symptoms and signs involving the nervous system; R20.0 Anesthesia of skin | CPT/HCPCS: 80053; 82310; 82607; 83036; 83970; 85025; 86038; 86618; 86666; 86757 ==

== ENCOUNTER → 2022-12-28 12:57 | Outpatient (BNVA) | payer OTHER, SELFPAY | PROVIDERS: PCP Family Medicine; Visit Provider Specialist | DX: M54.16 Radiculopathy, lumbar region (principal); G62.9 Polyneuropathy, unspecified; G56.01 Carpal tunnel syndrome, right upper limb; Z98.890 Other specified postprocedural states; E11.9 Type 2 diabetes mellitus without complications | CPT/HCPCS: 36415; 80503; 82040; 82042; 82784; 82945; 83873; 83916; 84157; 86592; 87070; 87075; 87205; 89050 ==

== ENCOUNTER 2023-01-23 12:13 | Oncology outpatient (recurring) (ONCR) | payer OTHER, SELFPAY ==
[2023-01-22] VITALS (8 sets, daily range): BP systolic 107–158; BP diastolic 70–97; PULSE 69–80; RESP 16–18; TEMP 36.3–37; O2SAT 95–97
[2023-01-22] MEDS: sodium chloride 0.9% 250 ML 75 ML IV (13:39)
[2023-01-22] MEDS: acetaminophen 500 mg Tablet 1000 MG PO (16:20)
[2023-01-22] MEDS: diphenhydrAMINE 50 mg/mL SDV 1mL IVP (16:21)
[2023-01-23] VITALS (8 sets, daily range): BP systolic 115–131; BP diastolic 55–77; PULSE 58–69; RESP 16–17; TEMP 36.5–37.1; O2SAT 96–99
[2023-01-23] MEDS: acetaminophen 500 mg Tablet 1000 MG PO (12:42)
[2023-01-23] MEDS: diphenhydrAMINE 25 mg Capsule 50 MG PO (12:42)
== END 2023-01-23 23:59 | disposition home or self-care (01) ==
PROVIDERS: PCP Family Medicine; Visit Provider Specialist
DX: E83.52 Hypercalcemia (principal)
CPT/HCPCS: 96361; 96365; 96366; 96375; J1200; J1459; J7050

== ENCOUNTER 2023-01-26 08:00 | Oncology outpatient (recurring) (ONCR) | payer OTHER, SELFPAY ==
[2023-01-24] VITALS (8 sets, daily range): BP systolic 120–137; BP diastolic 78–87; PULSE 66–78; RESP 16; TEMP 36.4–37.1; O2SAT 96–99
[2023-01-24] MEDS: acetaminophen 500 mg Tablet 1000 MG PO (13:15)
[2023-01-24] MEDS: diphenhydrAMINE 25 mg Capsule 50 MG PO (13:15)
[2023-01-25] VITALS (8 sets, daily range): BP systolic 124–146; BP diastolic 81–89; PULSE 56–72; RESP 18; TEMP 35.9–36.9; O2SAT 95–98
[2023-01-25] MEDS: acetaminophen 500 mg Tablet 1000 MG PO (13:15)
[2023-01-25] MEDS: diphenhydrAMINE 25 mg Capsule 50 MG PO (13:15)
[2023-01-25] MEDS: sodium chloride 0.9% 250 ML 35 ML IV (13:28)
[2023-01-26] VITALS (7 sets, daily range): BP systolic 109–152; BP diastolic 72–88; PULSE 59–80; RESP 16; TEMP 36.6–36.8; O2SAT 95–98
[2023-01-26] MEDS: acetaminophen 500 mg Tablet 1000 MG PO (08:26)
[2023-01-26] MEDS: diphenhydrAMINE 25 mg Capsule 50 MG PO (08:26)
== END 2023-01-26 23:59 | disposition home or self-care (01) ==
PROVIDERS: PCP Family Medicine; Visit Provider Specialist
DX: G62.89 Other specified polyneuropathies (principal); Z79.899 Other long term (current) drug therapy
CPT/HCPCS: 96365; 96366; J1459; J7050

== ENCOUNTER 2023-02-16 08:00 | Oncology outpatient (recurring) (ONCR) | payer OTHER, SELFPAY ==
[2023-02-12 12:38] VITALS: BMI 33.0
--- OUTSIDE RECORDS SUMMARY | 2023-02-15 11:11 | XMS_ITS | Patient Health Record ---
Author Name Unknown Organization [facility] Address [address] [place] [address] Care Team Providers Care Blue Line Trimmer Name Role Phone Magdi Givens MD Primary Care Provider Jamin Noriega Unavailable [phone] Kamala Warner Unavailable [phone] ALLERGIES Allergen (clinical drug ingredient) Drug/Non Drug Allergy documented on EMR Reaction Allergy Type Onset Date Status No Known Drug Allergy Unknown Drug Allergy Active REASON FOR REFERRAL No Information MEDICATIONS Medication SIG (Take, Route, Frequency, Duration) Notes Start Date End Date Status Lisinopril-hydroCHLOROthiaz abraham 20-12.5 MG TAKE 2 TABLETS BY MOUTH EVERY DAY Oral for 30 Active Metoprolol Tartrate 100 MG TAKE 1 TABLET BY MOUTH TWICE DAILY Oral for 30 Active Mesalamine 1.2 GM TAKE 4 TABLETS BY MO UTH ONCE A DAY 30 DAY(S) for 30 Active glipiZIDE 5 MG TAKE 1 TABLET BY RAJEEV TH TWICE DAILY WITH MEALS Oral for 30 Active Esomeprazole Magnesium 40 MG 1 capsule Orally twice daily for 90 days Active SOCIAL HISTORY Tobacco Use: Social History Observation Description Date Details (start date - stop date) Never Smoker NA - NA Sex Assigned At : Social History Observation Description Sex Assigned At Unknown Tobacco Use/Smoking Question Answer Notes Are you a nonsmoker Alcohol Screen (Audit-C) Question Answer Notes Did you have a drink contain ing alcohol in the past year? Yes How often did you have a dri nk containing alcohol in the past year? 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 Problem Ulcerative proctitis without complication (K51.20) Active confirmed 7964492 Problem Ulcerative colitis with complication, unspecified location (K51.919) Active confirmed 94091450 Problem Serum calcium elevated (E83.52) Active confirmed 57655824 Problem Gastroesophageal reflux disease, unspecified whether esophagitis present (K21.9) Active confirmed [id number] Encounters Encounter Location Date Provider Diagnosis [facility] [address] [place] [address] 02/17/2022 [facility] [address] [place] [address] 03/06/2022 [facility] [address] [place] [address] 03/27/2022 [facility] [address] [place] [address] 04/24/2022 [facility] [address] [place] [address] 06/19/2022 [facility] [address] [place] [address] 08/15/2022 [facility] [address] [place] [address] 08/15/2022 Kamala Warner [facility] [address] [place] [address] 09/18/2022 Jamin [facility] [address] [place] [address] 09/28/2022 [facility] [address] [place] [address] 10/02/2022 [facility] [address] [place] [address] 10/05/2022 Jamin Boggs Ulcerative colitis with complication, unspecified location K51.919 [facility] [address] [place] [address] 10/05/2022 Jamin Boggs [facility] [address] [place] [address] 10/30/2022 Jamin Boggs [facility] [address] [place] [address] 12/07/2022 Jamin Boggs [facility] [address] [place] [address] 12/12/2022 Jamin Boggs [facility] [address] [place] [address] 12/20/2022 Jamin Boggs [facility] [address] [place] [address] 01/18/2023 Jamin Boggs ASSESSMENTS Encounter Date Diagnosis Assessment Notes Treatment Notes Treatment Clinical Notes 10/05/2022 Ulcerative colitis with complication, unspecified location (ICD-10 - K51.919) PLAN OF TREATMENT Future Test Test Name Order Date Calcium Ionized (B) 22443 02/13/2022 Insurance Providers Payer Name Payer Address Payer Phone Subscriber Number Group Number Insured Name Patient Relationship to Insured Coverage Start Date Coverage End Date Web TPA [address] [place] [address] [id number] Brayan Wesley Self - patient is the insured MEDICAL (GENERAL) HISTORY Medical History History ICD Code chicken pox as a child pneumonia arthritis hypertension gerd Surgical History Surgery Date(Month/Year) denies past surgical hx Hospitalization History Reason Date(Month/Year) denies past hospitalizations
[2023-02-15] MEDS: sodium chloride 0.9% 250 ML 100 ML IV (12:11)
[2023-02-15] MEDS: diphenhydrAMINE 25 mg Capsule 50 MG PO (12:11)
[2023-02-15] MEDS: acetaminophen 500 mg Tablet 1000 MG PO (12:11)
[2023-02-15 12:33] VITALS: BP 130/73; PULSE 49; TEMP 36.4; O2SAT 95
[2023-02-15 13:55] VITALS: BP 125/80; PULSE 56; TEMP 36.4; O2SAT 97
[2023-02-15 14:10] VITALS: BP 126/79; PULSE 50; TEMP 36.7; O2SAT 96
[2023-02-15 16:11] VITALS: BP 132/84; PULSE 54; RESP 16; TEMP 36.6; O2SAT 98
[2023-02-16] VITALS (8 sets, daily range): BP systolic 129–157; BP diastolic 81–98; PULSE 49–59; RESP 16; TEMP 36.3–36.9; O2SAT 96–97
[2023-02-16] MEDS: sodium chloride 0.9% 250 ML 75 ML IV (08:23)
[2023-02-16] MEDS: acetaminophen 500 mg Tablet 1000 MG PO (08:24)
[2023-02-16] MEDS: diphenhydrAMINE 25 mg Capsule 50 MG PO (08:24)
== END 2023-02-19 07:05 | disposition home or self-care (01) ==
PROVIDERS: PCP Family Medicine; Visit Provider Specialist
DX: G61.81 Chronic inflammatory demyelinating polyneuritis (principal); Z79.899 Other long term (current) drug therapy
CPT/HCPCS: 96365; 96366; J1459; J7050

== ENCOUNTER 2023-02-19 07:14 | Oncology outpatient (recurring) (ONCR) | payer OTHER, SELFPAY | END 2023-02-26 23:59 | disposition home or self-care (01) | LOC: ONCMED 07:14 | PROVIDERS: PCP Family Medicine; Visit Provider Specialist | DX: Z53.9 Procedure and treatment not carried out, unspecified reason (principal) ==

== ENCOUNTER 2023-03-08 10:40 | Oncology outpatient (recurring) (ONCR) | payer OTHER, SELFPAY ==
[2023-03-08] VITALS (8 sets, daily range): BP systolic 134–159; BP diastolic 78–92; PULSE 55–68; RESP 16–17; TEMP 35.9–36.6; O2SAT 97–99
[2023-03-08] MEDS: sodium chloride 0.9% 250 ML 75 ML IV (11:38)
[2023-03-08] MEDS: diphenhydrAMINE 25 mg Capsule 50 MG PO (11:39)
[2023-03-08] MEDS: acetaminophen 500 mg Tablet 1000 MG PO (11:39)
== END 2023-03-08 23:59 | disposition home or self-care (01) ==
LOC: ONCMED 10:41
PROVIDERS: PCP Family Medicine; Visit Provider Specialist
DX: E83.52 Hypercalcemia (principal)
CPT/HCPCS: 96365; 96366; J1459; J7050

== ENCOUNTER 2023-03-09 08:00 | Oncology outpatient (recurring) (ONCR) | payer OTHER, SELFPAY ==
[2023-03-09] VITALS (8 sets, daily range): BP systolic 126–152; BP diastolic 81–95; PULSE 58–75; RESP 16; TEMP 35.9–37.3; O2SAT 94–99
[2023-03-09] MEDS: sodium chloride 0.9% 250 ML 75 ML IV (08:40)
[2023-03-09] MEDS: acetaminophen 500 mg Tablet 1000 MG PO (08:40)
[2023-03-09] MEDS: diphenhydrAMINE 25 mg Capsule 50 MG PO (08:41)
== END 2023-03-09 23:59 | disposition home or self-care (01) ==
PROVIDERS: PCP Family Medicine; Visit Provider Specialist
DX: E83.52 Hypercalcemia (principal)
CPT/HCPCS: 96365; 96366; J1459; J7050

== ENCOUNTER 2023-03-29 11:00 | Oncology outpatient (recurring) (ONCR) | payer OTHER, SELFPAY ==
[2023-03-29] VITALS (8 sets, daily range): BP systolic 125–137; BP diastolic 83–91; PULSE 52–72; TEMP 35.7–36.8; O2SAT 97–99
[2023-03-29] MEDS: diphenhydrAMINE 25 mg Capsule PO (11:32)
[2023-03-29] MEDS: acetaminophen 500 mg Tablet 1000 MG PO (11:32)
[2023-03-29 11:33] LABS: Basophils # 0.1 10^3/uL (0.0-0.1); Basophils % 1.5 %; Eosinophils # 0.1 10^3/uL (0.0-0.8); Eosinophils % 2.8 %; Hematocrit 46.1 % (37-53); Lymphocytes # 1.9 10^3/uL (0.8-4.8); Lymphocytes % 40.3 %; Mean Corpuscular HGB Conc 34.7 g/dL (30-55); Mean Corpuscular Hemoglobin 30.4 pg (27-33); Mean Corpuscular Volume 87.6 fl (82-101); Monocytes # 0.5 10^3/uL (0.2-0.9); Monocytes % 9.7 %; Neutrophils # 2.11 10^3/uL (1.8-7.7); Neutrophils % 45.5 %; Nucleated Red Blood Cells % 0 %; Platelet Count 264 10^3/cmm (157-399); Red Blood Count 5.26 10^6/uL (3.85-5.65); Red Cell Distribution Width 11.6 % (12.1-15.1); White Blood Count 4.64 10^3/uL (3.29-11.43)
[2023-03-29] MEDS: sodium chloride 0.9% 250 ML 75 ML IV (11:33)
[2023-03-29] MEDS: [UNRECOGNIZED DRUG - OTHER] IV (12:02)
[2023-03-29] MEDS: IMMUNE GLOBULIN IV (12:02)
== END 2023-03-29 23:59 | disposition home or self-care (01) ==
PROVIDERS: PCP Family Medicine; Visit Provider Specialist
DX: G61.81 Chronic inflammatory demyelinating polyneuritis (principal); Z79.899 Other long term (current) drug therapy
CPT/HCPCS: 85025; 96413; 96415; J1459; J7050

== ENCOUNTER 2023-03-30 08:01 | Oncology outpatient (recurring) (ONCR) | payer OTHER, SELFPAY ==
[2023-03-30] VITALS (8 sets, daily range): BP systolic 115–148; BP diastolic 78–91; PULSE 57–65; RESP 16–17; TEMP 36–37.1; O2SAT 94–98
[2023-03-30] MEDS: diphenhydrAMINE 25 mg Capsule PO (08:26)
[2023-03-30] MEDS: acetaminophen 500 mg Tablet 1000 MG PO (08:26)
[2023-03-30] MEDS: sodium chloride 0.9% 250 ML 75 ML IV (08:27)
[2023-03-30] MEDS: [UNRECOGNIZED DRUG - OTHER] IV (08:45)
[2023-03-30] MEDS: IMMUNE GLOBULIN IV (08:45)
== END 2023-03-30 23:59 | disposition home or self-care (01) ==
PROVIDERS: PCP Family Medicine; Visit Provider Specialist
DX: G61.81 Chronic inflammatory demyelinating polyneuritis (principal)
CPT/HCPCS: 96365; 96366; J1459; J7050

== ENCOUNTER 2023-04-12 08:02 | Oncology outpatient (recurring) (ONCR) | payer OTHER, SELFPAY ==
[2023-04-12] VITALS (9 sets, daily range): BP systolic 130–175; BP diastolic 84–98; PULSE 52–62; RESP 16–17; TEMP 36.1–36.7; O2SAT 97–99; BMI 33.6
[2023-04-12] MEDS: diphenhydrAMINE 25 mg Capsule 50 MG PO (09:50)
[2023-04-12] MEDS: acetaminophen 500 mg Tablet 1000 MG PO (09:50)
[2023-04-12] MEDS: sodium chloride 0.9% 250 ML 75 ML IV (10:01)
[2023-04-12] MEDS: IMMUNE GLOBULIN IV (10:08)
[2023-04-12] MEDS: [UNRECOGNIZED DRUG - OTHER] IV (10:08)
== END 2023-04-12 23:59 | disposition home or self-care (01) ==
PROVIDERS: PCP Family Medicine; Visit Provider Specialist
DX: G61.81 Chronic inflammatory demyelinating polyneuritis (principal)
CPT/HCPCS: 96365; 96366; J1459; J7050

== ENCOUNTER 2023-04-13 07:22 | Oncology outpatient (recurring) (ONCR) | payer OTHER, SELFPAY ==
[2023-04-13] VITALS (7 sets, daily range): BP systolic 130–161; BP diastolic 84–96; PULSE 60–63; RESP 16; TEMP 36.6–37.1; O2SAT 93–99
[2023-04-13] MEDS: sodium chloride 0.9% 250 ML 100 ML IV (08:17)
[2023-04-13] MEDS: acetaminophen 500 mg Tablet 1000 MG PO (08:18)
[2023-04-13] MEDS: diphenhydrAMINE 25 mg Capsule 50 MG PO (08:18)
[2023-04-13] MEDS: [UNRECOGNIZED DRUG - OTHER] IV (08:30)
[2023-04-13] MEDS: IMMUNE GLOBULIN IV (08:30)
== END 2023-04-13 23:59 | disposition home or self-care (01) ==
PROVIDERS: PCP Family Medicine; Visit Provider Specialist
DX: G61.81 Chronic inflammatory demyelinating polyneuritis (principal); Z53.9 Procedure and treatment not carried out, unspecified reason
CPT/HCPCS: 96365; 96366; J1459; J7050

== ENCOUNTER 2023-04-13 09:00 | Outpatient (CLI) | payer OTHER, SELFPAY ==
--- NOTE | 2023-04-13 13:45 | MR_ITS ---
WS: [id number] MRI CERVICAL SPINE NONCONTRAST TECHNIQUE: Sagittal T1, T2 and STIR imaging. Axial T2, gradient, and fiesta imaging. CLINICAL INFORMATION: R20.0 - Anesthesia of skin COMPARISON: None. FINDINGS: Straightening of the normal cervical lordosis. Small central disc osteophyte protrusions C5-C6 and C6 -C7. Cord signal is normal. . C2-C3: Normal. C3-C4: Mild facet arthropathy. Disc osteophytic ridging. Moderate LEFT foraminal narrowing. C4-C5: Disc osteophyte complex with endplate ridging. Mild facet arthropathy. Mild LEFT bony foramina l narrowing. C5-C6: Disc osteophyte complex with slight contact of the cervical cord. Spinal canal is patent. Mode rate to severe bilateral bony foraminal narrowing with uncovertebral joint hypertrophy. Moderate face t arthropathy. C6-C7: Disc osteophyte complex with endplate ridging. Slight contact of the cervical cord. Moderate t o severe RIGHT and moderate LEFT bony foraminal narrowing. Mild facet arthropathy. Uncovertebral join t hypertrophy. C7-T1: Mild LEFT and no significant RIGHT foraminal narrowing. Moderate facet arthropathy. Spinal can al is patent. Visualized brain stem structures: Normal. Prevertebral soft tissues: Normal. IMPRESSION: 1. Straightening of the normal cervical lordosis with disc osteophyte protrusions C5-C6 and C6-C7. 2. Small disc osteophyte protrusion C5-C6 and C6-C7 with slight contact of the cervical cord. No sig nificant central canal stenosis. 3. Moderate to severe bony foraminal narrowing worse at bilateral C5-C6 worse on the RIGHT and bilat eral C6-7. 4. Cord signal is normal.
== END 2023-04-13 09:01 | disposition home or self-care (01) ==
LOC: RAD 07-31 09:40
PROVIDERS: PCP Family Medicine; Visit Provider Specialist
DX: R20.0 Anesthesia of skin (principal); R29.818 Other symptoms and signs involving the nervous system; M50.222 Other cervical disc displacement at C5-C6 level; M53.82 Other specified dorsopathies, cervical region; M25.78 Osteophyte, vertebrae; M48.02 Spinal stenosis, cervical region
CPT/HCPCS: 72141

== ENCOUNTER → 2023-04-25 14:33 | Outpatient (BNVA) | payer OTHER, SELFPAY | PROVIDERS: PCP Family Medicine; Visit Provider Internal Medicine | DX: R76.8 Other specified abnormal immunological findings in serum (principal); G61.81 Chronic inflammatory demyelinating polyneuritis; K52.9 Noninfective gastroenteritis and colitis, unspecified; R53.81 Other malaise; R00.0 Tachycardia, unspecified | CPT/HCPCS: 36415; 80053; 81003; 82550; 83520; 84100; 84182; 84443; 85651; 86036; 86140; 86160; 86162; 86200; 86235; 86255; 86376; 86431; 86480; 86704; 86803; 87340 ==

== ENCOUNTER 2023-04-26 08:00 | Oncology outpatient (recurring) (ONCR) | payer OTHER, SELFPAY ==
[2023-04-26] VITALS (7 sets, daily range): BP systolic 115–130; BP diastolic 77–87; PULSE 48–54; RESP 17; TEMP 35.6–36.6; O2SAT 96–98
[2023-04-26] MEDS: diphenhydrAMINE 25 mg Capsule 50 MG PO (08:54)
[2023-04-26] MEDS: acetaminophen 500 mg Tablet 1000 MG PO (08:54)
[2023-04-26] MEDS: sodium chloride 0.9% 250 ML 75 ML IV (09:36)
[2023-04-26] MEDS: [UNRECOGNIZED DRUG - OTHER] IV (09:37)
[2023-04-26] MEDS: IMMUNE GLOBULIN IV (09:37)
== END 2023-04-26 23:59 | disposition home or self-care (01) ==
PROVIDERS: PCP Family Medicine; Visit Provider Specialist
DX: G61.81 Chronic inflammatory demyelinating polyneuritis (principal); Z53.9 Procedure and treatment not carried out, unspecified reason
CPT/HCPCS: 96365; 96366; J1459; J7050

== ENCOUNTER 2023-04-27 07:08 | Oncology outpatient (recurring) (ONCR) | payer OTHER, SELFPAY ==
[2023-04-27] VITALS (7 sets, daily range): BP systolic 119–138; BP diastolic 80–88; PULSE 53–59; RESP 16–17; TEMP 35.8–37; O2SAT 96–98
[2023-04-27] MEDS: diphenhydrAMINE 25 mg Capsule 50 MG PO (08:25)
[2023-04-27] MEDS: acetaminophen 500 mg Tablet 1000 MG PO (08:25)
[2023-04-27] MEDS: sodium chloride 0.9% 250 ML 75 ML IV (08:28)
[2023-04-27] MEDS: [UNRECOGNIZED DRUG - OTHER] IV (08:40)
[2023-04-27] MEDS: IMMUNE GLOBULIN IV (08:40)
== END 2023-04-28 23:59 | disposition home or self-care (01) ==
PROVIDERS: PCP Family Medicine; Visit Provider Specialist
DX: G61.81 Chronic inflammatory demyelinating polyneuritis (principal)
CPT/HCPCS: 96365; 96366; J1459; J7050

== ENCOUNTER 2023-05-04 10:58 | Outpatient (CLI) | payer OTHER, SELFPAY ==
--- NOTE | 2023-05-04 11:01 | XR_ITS ---
WS: [id number] EXAMINATION: XR lumbar spine 2-3V* [id number] REASON FOR EXAM: L LUMBAR RADICULOPATHY, FOOT DROP COMPARISON: None 09/22/2022 ORDER DATE: 05/04/2023 11:01 AM FINDINGS: Generalized degenerative spinal changes are seen including moderate degenerative endplate changes and marginal osteophytes. There is very mild anterior wedge compression change in the superior endplate of L3 which seems slightly more prominent than on the previous study. There is no significant narrowi ng of the intervertebral disc spaces. There is no evidence of acute compression deformities or spondy lolisthesis. IMPRESSION: SUBTLE ANTERIOR COMPRESSION OF SUPERIOR ENDPLATE OF L3 POSSIBLY UNCHANGED FROM PREVIOUS OR DUE TO DIF FERENCE IN PROJECTION BUT CLINICAL CORRELATION RECOMMENDED. MODERATE DEGENERATIVE SPINE CHANGE AND SPONDYLOSIS.
== END 2023-05-04 10:59 | disposition home or self-care (01) ==
LOC: RAD 10:59
PROVIDERS: PCP Family Medicine; Visit Provider Dermatology Procedural Dermatology
DX: Z02.71 Encounter for disability determination (principal); M47.26 Other spondylosis with radiculopathy, lumbar region; M21.379 Foot drop, unspecified foot
CPT/HCPCS: 72100

== ENCOUNTER 2023-05-11 08:00 | Oncology outpatient (recurring) (ONCR) | payer OTHER, SELFPAY ==
[2023-05-10] VITALS (9 sets, daily range): BP systolic 119–174; BP diastolic 78–92; PULSE 42–54; RESP 16–17; TEMP 36.6–36.9; O2SAT 94–98; BMI 32.8
[2023-05-10 08:39] LABS: Basophils # 0.1 10^3/uL (0.0-0.1); Basophils % 1.1 %; Eosinophils # 0.1 10^3/uL (0.0-0.8); Eosinophils % 2.7 %; Hematocrit 47.5 % (37-53); Lymphocytes # 2.4 10^3/uL (0.8-4.8); Lymphocytes % 45.1 %; Mean Corpuscular HGB Conc 34.1 g/dL (30-55); Mean Corpuscular Hemoglobin 29.7 pg (27-33); Mean Corpuscular Volume 87.2 fl (82-101); Mean Platelet Volume 10.1 fL (7.4-10.4); Monocytes # 0.4 10^3/uL (0.2-0.9); Monocytes % 7.8 %; Neutrophils # 2.26 10^3/uL (1.8-7.7); Neutrophils % 43.1 %; Nucleated Red Blood Cells % 0 %; Platelet Count 279 10^3/cmm (157-399); Red Blood Count 5.45 10^6/uL (3.85-5.65); Red Cell Distribution Width 11.6 % (12.1-15.1); White Blood Count 5.25 10^3/uL (3.29-11.43)
[2023-05-10] MEDS: sodium chloride 0.9% 250 ML 50 ML IV (08:47)
[2023-05-10] MEDS: acetaminophen 500 mg Tablet 1000 MG PO (08:47)
[2023-05-10] MEDS: diphenhydrAMINE 25 mg Capsule 50 MG PO (08:47)
[2023-05-10 08:56] LABS: Alanine Aminotransferase 31 U/L (0-41); Alkaline Phosphatase 47 U/L (40-130); Aspartate Amino Transferase 23 U/L (0-40); Blood Urea Nitrogen 14 mg/dL (6-20); Calcium 7.4 mg/dL (8.5-10.5); Carbon Dioxide 21 mmol/L (22-29); Chloride 110 mmol/L (98-107); Globulin 3.2 g/dL (1.3-4.6); Glomerular Filtration Rate 140.4 mL/min (90-130); Glucose 127 mg/dL (65-115); Osmolality Calculated 290 mOsm/kg (285-295); Sodium 139 mmol/L (136-145); Total Bilirubin 0.3 mg/dL (0.15-1.2); Total Protein 6.2 g/dL (6.6-8.7)
[2023-05-10] MEDS: [UNRECOGNIZED DRUG - OTHER] IV (09:30)
[2023-05-10] MEDS: IMMUNE GLOBULIN IV (09:30)
[2023-05-11] VITALS (9 sets, daily range): BP systolic 110–158; BP diastolic 72–98; PULSE 53–65; RESP 16–17; TEMP 36.6–36.8; O2SAT 95–99; BMI 32.8
[2023-05-11] MEDS: acetaminophen 500 mg Tablet 1000 MG PO (08:09)
[2023-05-11] MEDS: diphenhydrAMINE 25 mg Capsule 50 MG PO (08:10)
[2023-05-11] MEDS: sodium chloride 0.9% 250 ML 50 ML IV (09:06)
[2023-05-11] MEDS: IMMUNE GLOBULIN IV (09:15)
[2023-05-11] MEDS: [UNRECOGNIZED DRUG - OTHER] IV (09:15)
== END 2023-05-11 23:59 | disposition home or self-care (01) ==
PROVIDERS: PCP Family Medicine; Visit Provider Specialist
DX: G61.81 Chronic inflammatory demyelinating polyneuritis (principal)
CPT/HCPCS: 80053; 85025; 96365; 96366; J1459; J7050

== ENCOUNTER 2023-05-24 07:57 | Oncology outpatient (recurring) (ONCR) | payer OTHER, SELFPAY ==
[2023-05-24] VITALS (10 sets, daily range): BP systolic 98–116; BP diastolic 65–79; PULSE 53–84; RESP 16; TEMP 36.1–36.8; O2SAT 96–99; BMI 28.8
[2023-05-24] MEDS: diphenhydrAMINE 25 mg Capsule 50 MG PO (08:27)
[2023-05-24] MEDS: sodium chloride 0.9% 250 ML 75 ML IV (08:28)
[2023-05-24] MEDS: acetaminophen 500 mg Tablet 1000 MG PO (08:28)
[2023-05-24] MEDS: IMMUNE GLOBULIN IV (08:50)
[2023-05-24] MEDS: [UNRECOGNIZED DRUG - OTHER] IV (08:50)
== END 2023-05-24 23:59 | disposition home or self-care (01) ==
PROVIDERS: PCP Family Medicine; Visit Provider Specialist
DX: G61.81 Chronic inflammatory demyelinating polyneuritis (principal)
CPT/HCPCS: 96413; 96415; J1459; J7050

== ENCOUNTER 2023-05-25 06:59 | Oncology outpatient (recurring) (ONCR) | payer OTHER, SELFPAY ==
[2023-05-25] VITALS (10 sets, daily range): BP systolic 110–144; BP diastolic 74–89; PULSE 55–69; RESP 16; TEMP 36.6–37.1; O2SAT 92–97
[2023-05-25] MEDS: sodium chloride 0.9% 250 ML 75 ML IV (08:22)
[2023-05-25] MEDS: acetaminophen 500 mg Tablet 1000 MG PO (08:22)
[2023-05-25] MEDS: diphenhydrAMINE 25 mg Capsule 50 MG PO (08:23)
[2023-05-25] MEDS: [UNRECOGNIZED DRUG - OTHER] IV (09:20)
[2023-05-25] MEDS: IMMUNE GLOBULIN IV (09:20)
== END 2023-05-25 23:59 | disposition home or self-care (01) ==
LOC: ONCMED 07:02
PROVIDERS: PCP Family Medicine; Visit Provider Specialist
DX: G61.81 Chronic inflammatory demyelinating polyneuritis (principal)
CPT/HCPCS: 96413; 96415; J1459; J7050

== ENCOUNTER 2023-06-07 07:53 | Oncology outpatient (recurring) (ONCR) | payer OTHER, SELFPAY ==
[2023-06-07] VITALS (11 sets, daily range): BP systolic 113–154; BP diastolic 70–92; PULSE 52–68; RESP 16–17; TEMP 35.7–36.7; O2SAT 95–99
[2023-06-07 08:55] LABS: Basophils # 0.1 10^3/uL (0.0-0.1); Eosinophils # 0.1 10^3/uL (0.0-0.8); Eosinophils % 2.8 %; Hematocrit 43.8 % (37-53); Mean Corpuscular Hemoglobin 29.4 pg (27-33); Mean Corpuscular Volume 86.4 fl (82-101); Mean Platelet Volume 10.2 fL (7.4-10.4); Monocytes # 0.4 10^3/uL (0.2-0.9); Monocytes % 8.7 %; Neutrophils # 2.34 10^3/uL (1.8-7.7); Neutrophils % 47.3 %; Nucleated Red Blood Cells % 0 %; Platelet Count 317 10^3/cmm (157-399); Red Blood Count 5.07 10^6/uL (3.85-5.65); Red Cell Distribution Width 11.5 % (12.1-15.1); White Blood Count 4.95 10^3/uL (3.29-11.43)
[2023-06-07] MEDS: acetaminophen 500 mg Tablet 1000 MG PO (08:57)
[2023-06-07] MEDS: sodium chloride 0.9% 250 ML 75 ML IV (08:57)
[2023-06-07] MEDS: diphenhydrAMINE 25 mg Capsule 50 MG PO (08:57)
[2023-06-07 09:11] LABS: Anion Gap 12.9 (5-19); Blood Urea Nitrogen 11 mg/dL (6-20); Carbon Dioxide 23 mmol/L (22-29); Chloride 100 mmol/L (98-107); Glomerular Filtration Rate 100.7 mL/min (90-130); Glucose 176 mg/dL (65-115); Osmolality Calculated 278 mOsm/kg (285-295); Potassium 3.9 mmol/L (3.5-5.1); Sodium 132 mmol/L (136-145)
[2023-06-07] MEDS: IMMUNE GLOBULIN IV (09:15)
[2023-06-07] MEDS: [UNRECOGNIZED DRUG - OTHER] IV (09:15)
== END 2023-06-07 23:59 | disposition home or self-care (01) ==
PROVIDERS: PCP Family Medicine; Visit Provider Specialist
DX: G61.81 Chronic inflammatory demyelinating polyneuritis (principal); G62.9 Polyneuropathy, unspecified
CPT/HCPCS: 80048; 85025; 96365; 96366; J1459; J7050

== ENCOUNTER 2023-06-08 06:00 | Oncology outpatient (recurring) (ONCR) | payer OTHER, SELFPAY ==
[2023-06-08] VITALS (9 sets, daily range): BP systolic 139–164; BP diastolic 83–103; PULSE 53–62; RESP 16; TEMP 36.1–36.7; O2SAT 96–98
[2023-06-08] MEDS: acetaminophen 500 mg Tablet 1000 MG PO (08:34)
[2023-06-08] MEDS: diphenhydrAMINE 25 mg Capsule 50 MG PO (08:34)
[2023-06-08] MEDS: sodium chloride 0.9% 250 ML 75 ML IV (08:35)
[2023-06-08] MEDS: IMMUNE GLOBULIN IV (09:02)
[2023-06-08] MEDS: [UNRECOGNIZED DRUG - OTHER] IV (09:02)
== END 2023-06-08 23:59 | disposition home or self-care (01) ==
PROVIDERS: PCP Family Medicine; Visit Provider Specialist
DX: G61.81 Chronic inflammatory demyelinating polyneuritis (principal)
CPT/HCPCS: 96365; 96366; J1459; J7050

== ENCOUNTER 2023-06-18 08:08 | Outpatient (CLI) | payer OTHER, SELFPAY ==
[2023-06-18 08:48] VITALS: BMI 32.7
--- NOTE | 2023-06-18 08:49 | ECG_ITS ---
[facility] Test Date: 2023-06-18 Pat Name: Brayan Osorio Department: Room: Gender: Male Telehealth Coordinator: Gera Bautista : 1970 Requested By: Magdi Mandel Order Number: [id number] Hunter MD: Shiva Franco M.D. Interpretive Statements NAME OF STUDY: LEXISCAN SESTAMIBI STRESS TEST INDICATION: Chest Pain, PROCEDURE: At the baseline, the EKG revealed normal sinus rhythm with a PVCs in the form of couplets. Nonspecific ST-T changes in the inferolateral leads. The baseline heart was 70 bpm with a blood pressue of 117/85 mm of Hg Lexiscan was infused over a period of 20 seconds. A total of 0.4 milligrams of Lexiscan was infused. The stress phase was continued for a total of 5 minutes. Heart rate at the end of the stress phase was 77 bpm with a blood pressure 127/102 mm of Hg. The EKG at the peak infusion revealed no significant changes. Sestamibi was injected 20 seconds after the Lexiscan infusion. Heart rate at the end of the recovery phase was 77 bpm with a blood pressure of 121/83 mm of Hg. CONCLUSION: 1. No significant EKG changes with the LexiScan infusion 2. No LexiScan induced chest pain or cardiac arrhythmia 3. Normal blood pressure and heart rate response 4. Sestamibi/sestamibi perfusion scan pending; see separate report. Electronically Signed On 06-22-2023 12:22:47 DIESEL MACHINIST by Shiva Franco M.D. [id number]
--- NOTE | 2023-06-18 08:49 | NMCV_ITS ---
NM narinder perf SPECT r/s* [id number] Brayan Osorio Age: 52 Gender: M : 1970 Exam Date: 06/18/2023 09:19 Ordering Phys: Magdi Givens MD Technologist: YADI Lane Exam Location: [facility] Indications: CHEST PAIN STRESS TEST Please see separate stress test report in [facility] for full findings IMAGE PROTOCOL Rest/Stress 1 Lexiscan Day Radiopharmaceutical Dose (mCi) Administration Site Administered by Rest: Tc-99m 10.[address] Sestamibi Stress:Tc-99m 32.6 IV YADI Gleason Sestamibi Rest: 60 Discovery 630 Stress: 30 Discovery 630 0.4mg Lexiscan. Supine position only as patient was unable to lay prone. SPECT RESULTS Technical Quality: Excellent Raw Data Analysis: Normal Image Corrections: No attenuation or motion correction applied Summed Stress Score: 5 Summed Rest Score: 0 Summed Difference Score: 5 PERFUSION FINDINGS Small area of moderately decreased tracer uptake involving the apical anterior, apical lateral and apical segments. Significant reversibility was noted in these regions. FUNCTIONAL RESULTS (calculated via Gated SPECT) Stress Image LV EF (%): 55 Stress EDV (mL):151 TID: 1.01 Stress ESV (mL):68 FUNCTIONAL FINDINGS: Summary wall motion analysis revealing mild hypokinesia of the apical anterior wall region. IMPRESSIONS 1. Myocardial perfusion imaging revealing small area of reversible defect involving the apical anterior, apical lateral and LV apex suggesting ischemia in the distribution of the circumflex artery 2. Normal LV ejection fraction of 55%. 3. LV wall motion analysis revealing no gross wall motion abnormalities. 4. Mildly dilated LV cavity with end-systolic volume of 68 mL 5. No similar previous studies are available for comparison Dr Shiva Franco MD FAC (Electronically Signed) Final Date: 18 June 2023 15:57 S
[2023-06-18] MEDS: regadenoson 0.4 Mg/5 ml Syringe IVP (09:55)
[2023-06-18 10:08] VITALS: BP 121/83; PULSE 76
== END 2023-06-18 08:09 | disposition home or self-care (01) ==
LOC: CDL 08:08
PROVIDERS: PCP Family Medicine; Visit Provider Family Medicine
DX: R07.9 Chest pain, unspecified (principal)
CPT/HCPCS: 36415; 78452; 93017; 96374; A9500; J2785

== ENCOUNTER 2023-06-28 08:00 | Oncology outpatient (recurring) (ONCR) | payer OTHER, SELFPAY ==
[2023-06-28] VITALS (10 sets, daily range): BP systolic 104–136; BP diastolic 64–85; PULSE 47–60; RESP 16–18; TEMP 36.1–36.9; O2SAT 95–98; BMI 33.0
[2023-06-28] MEDS: sodium chloride 0.9% 250 ML 75 ML IV (09:13)
[2023-06-28] MEDS: acetaminophen 500 mg Tablet 1000 MG PO (09:14)
[2023-06-28] MEDS: diphenhydrAMINE 25 mg Capsule 50 MG PO (09:14)
[2023-06-28] MEDS: sodium chloride 0.9% 250 ML 30 ML IV (09:15)
[2023-06-28] MEDS: IMMUNE GLOBULIN IV (09:37)
[2023-06-28] MEDS: [UNRECOGNIZED DRUG - OTHER] IV (09:37)
== END 2023-06-28 23:59 | disposition home or self-care (01) ==
PROVIDERS: PCP Family Medicine; Visit Provider Specialist
DX: G61.81 Chronic inflammatory demyelinating polyneuritis (principal)
CPT/HCPCS: 96365; 96366; J1459; J7050

== ENCOUNTER 2023-06-29 07:59 | Oncology outpatient (recurring) (ONCR) | payer OTHER, SELFPAY ==
[2023-06-29] VITALS (8 sets, daily range): BP systolic 114–129; BP diastolic 78–87; PULSE 55–61; RESP 16–17; TEMP 36.1–37.1; O2SAT 95–99
[2023-06-29] MEDS: diphenhydrAMINE 25 mg Capsule 50 MG PO (08:25)
[2023-06-29] MEDS: acetaminophen 500 mg Tablet 1000 MG PO (08:25)
[2023-06-29] MEDS: sodium chloride 0.9% 250 ML 75 ML IV (08:27)
[2023-06-29] MEDS: [UNRECOGNIZED DRUG - OTHER] IV (08:43)
[2023-06-29] MEDS: IMMUNE GLOBULIN IV (08:43)
== END 2023-06-29 23:59 | disposition home or self-care (01) ==
PROVIDERS: PCP Family Medicine; Visit Provider Specialist
DX: G61.81 Chronic inflammatory demyelinating polyneuritis (principal)
CPT/HCPCS: 96365; 96366; J1459; J7050

== ENCOUNTER 2023-07-12 07:55 | Oncology outpatient (recurring) (ONCR) | payer OTHER, SELFPAY ==
[2023-07-12 08:07] VITALS: BP 119/74; PULSE 59; RESP 18; TEMP 36.5; O2SAT 98
[2023-07-12 08:44] LABS: Basophils # 0.1 10^3/uL (0.0-0.1); Basophils % 0.8 %; Eosinophils # 0.1 10^3/uL (0.0-0.8); Eosinophils % 1.5 %; Hematocrit 46.9 % (37-53); Lymphocytes # 1.8 10^3/uL (0.8-4.8); Lymphocytes % 29.9 %; Mean Corpuscular HGB Conc 34.8 g/dL (30-55); Mean Corpuscular Hemoglobin 29.7 pg (27-33); Mean Corpuscular Volume 85.4 fl (82-101); Mean Platelet Volume 10.6 fL (7.4-10.4); Monocytes # 0.5 10^3/uL (0.2-0.9); Monocytes % 8.7 %; Neutrophils # 3.49 10^3/uL (1.8-7.7); Neutrophils % 58.8 %; Nucleated Red Blood Cells % 0 %; Platelet Count 292 10^3/cmm (157-399); Red Blood Count 5.49 10^6/uL (3.85-5.65); Red Cell Distribution Width 11.7 % (12.1-15.1); White Blood Count 5.95 10^3/uL (3.29-11.43)
[2023-07-12] MEDS: acetaminophen 500 mg Tablet 1000 MG PO (08:44)
[2023-07-12] MEDS: diphenhydrAMINE 25 mg Capsule 50 MG PO (08:44)
[2023-07-12] MEDS: sodium chloride 0.9% 250 ML 75 ML IV (09:15)
[2023-07-12 09:20] VITALS: BP 128/85; PULSE 61; RESP 18; TEMP 36.6; O2SAT 97
[2023-07-12] MEDS: IMMUNE GLOBULIN IV (09:21)
[2023-07-12] MEDS: [UNRECOGNIZED DRUG - OTHER] IV (09:21)
[2023-07-12 09:23] LABS: Alanine Aminotransferase 22 U/L (0-41); Alkaline Phosphatase 82 U/L (40-130); Anion Gap 14.3 (5-19); Aspartate Amino Transferase 24 U/L (0-40); Blood Urea Nitrogen 18 mg/dL (6-20); Calcium 10.3 mg/dL (8.5-10.5); Carbon Dioxide 24 mmol/L (22-29); Chloride 98 mmol/L (98-107); Globulin 4.7 g/dL (1.3-4.6); Glomerular Filtration Rate 100.4 mL/min (90-130); Glucose 260 mg/dL (65-115); Osmolality Calculated 285 mOsm/kg (285-295); Potassium 4.3 mmol/L (3.5-5.1); Sodium 132 mmol/L (136-145); Total Bilirubin 0.7 mg/dL (0.15-1.2); Total Protein 8.7 g/dL (6.6-8.7)
[2023-07-12 12:15] VITALS: BP 118/82; PULSE 72; RESP 18; TEMP 36.4; O2SAT 95
== END 2023-07-12 23:59 | disposition home or self-care (01) ==
LOC: ONCMED 07:56
PROVIDERS: PCP Family Medicine; Visit Provider Specialist
DX: G61.81 Chronic inflammatory demyelinating polyneuritis (principal)
CPT/HCPCS: 80053; 85025; 96413; 96415; J1459; J7050

== ENCOUNTER 2023-07-13 07:46 | Oncology outpatient (recurring) (ONCR) | payer OTHER, SELFPAY ==
[2023-07-13] VITALS (9 sets, daily range): BP systolic 126–149; BP diastolic 70–90; PULSE 59–71; RESP 16–17; TEMP 36.2–37.1; O2SAT 94–98
[2023-07-13] MEDS: acetaminophen 500 mg Tablet 1000 MG PO (08:14)
[2023-07-13] MEDS: diphenhydrAMINE 25 mg Capsule 50 MG PO (08:14)
[2023-07-13] MEDS: sodium chloride 0.9% 250 ML 50 ML IV (08:16)
[2023-07-13] MEDS: [UNRECOGNIZED DRUG - OTHER] IV (08:40)
[2023-07-13] MEDS: IMMUNE GLOBULIN IV (08:40)
== END 2023-07-13 23:59 | disposition home or self-care (01) ==
LOC: ONCMED 07:46
PROVIDERS: PCP Family Medicine; Visit Provider Specialist
DX: G61.81 Chronic inflammatory demyelinating polyneuritis (principal)
CPT/HCPCS: 96365; 96366; J1459; J7050

== ENCOUNTER 2023-07-26 07:57 | Oncology outpatient (recurring) (ONCR) | payer OTHER, SELFPAY ==
[2023-07-26] VITALS (7 sets, daily range): BP systolic 107–144; BP diastolic 73–83; PULSE 47–95; RESP 18; TEMP 36.2–36.8; O2SAT 95–98; BMI 33.1
[2023-07-26] MEDS: acetaminophen 500 mg Tablet 1000 MG PO (08:50)
[2023-07-26] MEDS: sodium chloride 0.9% 250 ML 75 ML IV (08:50)
[2023-07-26] MEDS: diphenhydrAMINE 25 mg Capsule 50 MG PO (08:50)
[2023-07-26] MEDS: IMMUNE GLOBULIN IV (09:21)
[2023-07-26] MEDS: [UNRECOGNIZED DRUG - OTHER] IV (09:21)
== END 2023-07-26 23:59 | disposition home or self-care (01) ==
LOC: ONCMED 07:58
PROVIDERS: PCP Family Medicine; Visit Provider Specialist
DX: G61.81 Chronic inflammatory demyelinating polyneuritis (principal)
CPT/HCPCS: 96365; 96366; J1459; J7050

== ENCOUNTER 2023-07-27 07:58 | Oncology outpatient (recurring) (ONCR) | payer OTHER, SELFPAY ==
[2023-07-27] VITALS (9 sets, daily range): BP systolic 122–148; BP diastolic 77–97; PULSE 59–68; RESP 16; TEMP 35.7–36.7; O2SAT 94–98
[2023-07-27] MEDS: diphenhydrAMINE 25 mg Capsule 50 MG PO (08:29)
[2023-07-27] MEDS: acetaminophen 500 mg Tablet 1000 MG PO (08:29)
[2023-07-27] MEDS: sodium chloride 0.9% 250 ML 75 ML IV (08:37)
[2023-07-27] MEDS: IMMUNE GLOBULIN IV (09:00)
[2023-07-27] MEDS: [UNRECOGNIZED DRUG - OTHER] IV (09:00)
== END 2023-07-29 23:59 | disposition home or self-care (01) ==
PROVIDERS: PCP Family Medicine; Visit Provider Specialist
DX: G61.81 Chronic inflammatory demyelinating polyneuritis (principal)
CPT/HCPCS: 96365; 96366; J1459; J7050

== ENCOUNTER 2023-08-01 07:45 | Outpatient (CLI) | payer OTHER, SELFPAY ==
--- NOTE | 2023-08-01 08:00 | USCV_ITS ---
Brayan Osorio Age: 53 Gender: M : 1970 Exam Date: 08/01/2023 07:52 Ordering Phys: Shiva Franco MD ([email or web address]) Technologist: Paul Wild Exam Location: [facility] [place] Indication: pvc chest pain BP: 135 / 75 HR: 66 Rhythm: Sinus Technical Quality: Adequate MEASUREMENTS (Male / Female) Normal Values 2D ECHO LV Diastolic Diameter PLAX 4.6 cm 4.2 - 5.9 / 3.9 - 5.3 cm LV Systolic Diameter PLAX 2.5 cm IVS Diastolic Thickness 1.2 cm 0.6 - 1.0 / 0.6 - 0.9 cm IVS Systolic Thickness 1.7 cm LVPW Diastolic Thickness 1.2 cm 0.6 - 1.0 / 0.6 - 0.9 cm LVPW Systolic Thickness 1.4 cm LVOT Diameter 2.0 cm LV Ejection Fraction 2D Teich 75.6 % LV Ejection Fraction MOD 2C 43.1 % LV Ejection Fraction 2C AL 42.4 % LA Diameter 3.6 cm IVC Diameter 3.2 cm M-MODE Aortic Annulus Diameter 3.9 cm LA Ao Ratio MM 1.0 MV E Point Septal Separation 2.0 cm DOPPLER AV Peak Velocity 151.0 cm/s LVOT Peak Velocity 82.0 cm/s AV Area Cont Eq vti 2.0 cm squared AV Area Cont Eq pk 1.7 cm squared MV Area PHT 3.4 cm squared Mitral E to A Ratio 1.2 MV E' Velocity 41.5 cm/s Mitral E to MV E' Ratio 7.1 Mitral E to LV E' Lateral Ratio 5.1 Mitral E to LV E' Septal Ratio 11.6 TR Peak Velocity 159.0 cm/s TR Peak Gradient 10.1 mmHg Right Atrial Pressure 3.0 mmHg Pulmonary Artery Systolic Pressu 13.1 mmHg RV Acceleration Time 0.1 s FINDINGS Left Ventricle Normal LV size with the slightly diminished diffusion ejection fraction around 50%. Because of the frequent PVCs, segmental wall motion is somewhat difficult. Right Ventricle Normal right ventricular size and systolic function. Right Atrium The right atrium is normal in size. Left Atrium The left atrium is normal in size. Mitral Valve Mild to moderate mitral valve regurgitation. Aortic Valve Thickened aortic valve. Tricuspid Valve Trace tricuspid valve regurgitation. Pulmonic Valve No gross abnormalities noted Pericardium Normal pericardium without effusion. Aorta Normal ascending aorta dimension. IVC Appears to be dilated within normal collapsibility CONCLUSIONS Normal LV size with the slightly diminished diffusion ejection fraction around 50%. Because of the frequent PVCs, segmental wall motion is somewhat difficult. Mild to moderate mitral valve regurgitation. Trace tricuspid valve regurgitation. Thickened aortic valve. The IVC appears to be dilated with a normal collapsibility Estimated pulmonary artery peak systolic pressure possibly within normal limits No similar previous studies are available for comparison Dr Shiva Franco MD [facility] (Electronically Signed) Final Date: 05 August 2023 18:40 S
== END 2023-08-01 07:46 | disposition home or self-care (01) ==
PROVIDERS: PCP Family Medicine; Visit Provider Internal Medicine Cardiovascular Disease
DX: R06.09 Other forms of dyspnea (principal); R07.9 Chest pain, unspecified; I49.3 Ventricular premature depolarization; I35.8 Other nonrheumatic aortic valve disorders; I34.0 Nonrheumatic mitral (valve) insufficiency
CPT/HCPCS: 93306

== ENCOUNTER 2023-08-09 08:06 | Oncology outpatient (recurring) (ONCR) | payer OTHER, SELFPAY ==
[2023-08-09] VITALS (10 sets, daily range): BP systolic 110–135; BP diastolic 65–96; PULSE 51–58; RESP 16–17; TEMP 36–36.8; O2SAT 95–98; BMI 33.0
[2023-08-09] MEDS: acetaminophen 500 mg Tablet 1000 MG PO (08:39)
[2023-08-09] MEDS: diphenhydrAMINE 25 mg Capsule 50 MG PO (08:39)
[2023-08-09] MEDS: sodium chloride 0.9% 250 ML 75 ML IV (08:40)
[2023-08-09] MEDS: [UNRECOGNIZED DRUG - OTHER] IV (09:08)
[2023-08-09] MEDS: IMMUNE GLOBULIN IV (09:08)
== END 2023-08-09 23:59 | disposition home or self-care (01) ==
PROVIDERS: PCP Family Medicine; Visit Provider Specialist
DX: G61.81 Chronic inflammatory demyelinating polyneuritis (principal); Z53.9 Procedure and treatment not carried out, unspecified reason
CPT/HCPCS: 96365; 96366; J1459; J7050

== ENCOUNTER 2023-08-10 07:25 | Oncology outpatient (recurring) (ONCR) | payer OTHER, SELFPAY ==
[2023-08-10] VITALS (10 sets, daily range): BP systolic 110–134; BP diastolic 67–84; PULSE 57–70; RESP 16–17; TEMP 35.9–36.5; O2SAT 93–96
[2023-08-10] MEDS: acetaminophen 500 mg Tablet 1000 MG PO (08:16)
[2023-08-10] MEDS: diphenhydrAMINE 25 mg Capsule 50 MG PO (08:17)
[2023-08-10] MEDS: sodium chloride 0.9% 250 ML 50 ML IV (08:18)
[2023-08-10] MEDS: [UNRECOGNIZED DRUG - OTHER] IV (08:45)
[2023-08-10] MEDS: IMMUNE GLOBULIN IV (08:45)
== END 2023-08-10 23:59 | disposition home or self-care (01) ==
LOC: ONCMED 07:26
PROVIDERS: PCP Family Medicine; Visit Provider Specialist
DX: G61.81 Chronic inflammatory demyelinating polyneuritis (principal)
CPT/HCPCS: 96365; 96366; J1459; J7050

== ENCOUNTER 2023-08-21 09:16 | Outpatient (CLI) | payer OTHER, SELFPAY ==
[2023-08-21 09:43] LABS: Basophils # 0.1 10^3/uL (0.0-0.1); Basophils % 0.8 %; Eosinophils # 0.1 10^3/uL (0.0-0.8); Eosinophils % 1.5 %; Hematocrit 45.7 % (37-53); Lymphocytes # 2.5 10^3/uL (0.8-4.8); Lymphocytes % 34.8 %; Mean Corpuscular HGB Conc 34.1 g/dL (30-55); Mean Corpuscular Hemoglobin 29.3 pg (27-33); Mean Corpuscular Volume 85.9 fl (82-101); Mean Platelet Volume 9.5 fL (7.4-10.4); Monocytes # 0.6 10^3/uL (0.2-0.9); Monocytes % 7.6 %; Neutrophils # 3.95 10^3/uL (1.8-7.7); Nucleated Red Blood Cells % 0 %; Platelet Count 340 10^3/cmm (157-399); Red Blood Count 5.32 10^6/uL (3.85-5.65); Red Cell Distribution Width 11.9 % (12.1-15.1); White Blood Count 7.19 10^3/uL (3.29-11.43)
[2023-08-21 10:01] LABS: INR 0.99 (0.8-1.2)
[2023-08-21 10:10] LABS: Anion Gap 12.4 (5-19); Blood Urea Nitrogen 16 mg/dL (6-20); Calcium 10.5 mg/dL (8.5-10.5); Carbon Dioxide 26 mmol/L (22-29); Chloride 98 mmol/L (98-107); Glomerular Filtration Rate 87.6 mL/min (90-130); Glucose 231 mg/dL (65-115); Osmolality Calculated 283 mOsm/kg (285-295); Potassium 4.4 mmol/L (3.5-5.1); Sodium 132 mmol/L (136-145)
== END 2023-08-21 09:17 | disposition home or self-care (01) ==
LOC: LAB 09:17
PROVIDERS: PCP Family Medicine; Visit Provider Internal Medicine Cardiovascular Disease
DX: I25.118 Atherosclerotic heart disease of native coronary artery with other forms of angina pectoris (principal); I48.91 Unspecified atrial fibrillation; R06.02 Shortness of breath; Z79.01 Long term (current) use of anticoagulants
CPT/HCPCS: 36415; 80048; 85025; 85610; 86850; 86900

== ENCOUNTER 2023-08-22 05:54 | Outpatient (CLI) | payer OTHER, SELFPAY ==
[2023-08-22 05:00] VITALS: BP 149/98; RESP 18; TEMP 36.6; O2SAT 96; BMI 32.8
--- NOTE | 2023-08-22 06:00 | XACV_ITS ---
Exam Room: 2 Ht: 188 cm Wt: 116 kg BSA: 2.49 m2 Gender: Male : 1970 Any Known Allergies: No known allergies Exam Priority: Routine Procedure(s): Procedure Description: Diagnostic procedure Procedure Description: Left Heart Catheterization Procedure Description: Left ventriculography Procedure Description: Coronary Angiography Salvador MARTINEZ; Diagnostic Cath Status: Elective Diagnostic Findings * Left main is a medium caliber vessel with no significant stenotic lesions. * (Descending artery is a medium caliber vessel which appears to wrap around the LV apex minimally. The proximal area was found to have diffuse narrowing of around 30 to 40%. No other significant lesions were noted.. * The left circumflex artery is a medium caliber vessel which appears to case of a high obtuse marginal branch of equal caliber. No significant lesions were noted in these arteries. * Right coronary artery is a medium to large caliber dominant vessel with no significant stenotic lesions. Conclusions 1. Left main. 2. 53-year-old white male with multiple factors of coronary artery disease, presenting with complaints of chest pain. Was found to have frequent PVCs on the monitor. Myocardial perfusion imaging showed a small area of ischemia in the distribution of the left circumflex/right coronary artery. Echocardiac revealed mild diffuse hypokinesia left ventricular ejection fraction of 50%. In view of the patient's multiple risk factors and the ongoing symptoms, in order to further evaluate his coronary status, a cardiac catheterization was recommended. Patient with left heart catheterization with left and right coronary angiogram and LV angiogram today. The findings are as follows. 3. Normal left main. The left anterior descending artery was found to have 30 to 40% diffuse narrowing proximally. No other significant stenotic lesions were noted. The left circumflex artery has no significant lesions. The right coronary artery also was found to have no significant stenotic lesions. LVEDP of 24 mmHg. The LV ejection fraction was within normal limits. Diagnostic RX Recommendation: medical therapy and/or counseling LV EDP: 24 mmHg Ventriculography Ejection Fraction: 50.0 % Left Ventriculography Findings: * The LV gram was performed in the SWANSON projection. The LV cavity patient with normal size. Overall LV ejection fraction was around 50%. No severe mitral valve prolapse or mitral regurgitation was noted. The LVEDP was 24 mmHg. After the LV gram the LVEDP went down to 11 mmHg. Pressures Phase:Rest AO : 121 / 68 ( 94 ) @ 7:55:00 AM 126 / 65 ( 95 ) @ 7:55:00 AM LV : 123 / 14 / 24 @ 7:54:00 AM 131 / -9 / 11 @ 7:55:00 AM 123 / -6 / 13 @ 7:55:00 AM Valves Phase:DefaultPhase AV : 2.0 @ 8:02:05 AM 2.0 @ 8:02:05 AM AV Mean Gradient: 19.0 @ 8:02:05 AM 19.0 @ 8:02:05 AM Clinical Evaluation EBL: 5mL-10mL Procedural Details Procedure Consent Obtained. Admit Source: Out Patient. Pre-Procedure Time Out. Identified patient by full name and date of as verbalized by the patient/guarantor. Does the consent match the physician's order: Yes. Accurate & Complete Informed Consent: Yes. Inpatient/Outpatient History & Physical on Chart: Yes. If H&P is completed, is and addenduem needed: Yes; If yes, is the addendum complete: Yes. Visualize and Verify Site with Patient/Guarantor: N/A. Relevant Radiology Images available: Yes. The risks, benefits, and alternatives of sedation and/or procedure were discussed by physician. The patient agrees to continue. Procedure started. [facility] Clinical Fraility Score: 3: Managing Well. 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 Chest Pain Symptom Assessment: Atypical Angina Symptoms. Correct patient, site and procedure confirmed by cath team. Current diagnosis: Chest Pain, Abnormal stress test, abnormal echo. PERRLA. 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 Lungs clear x 5 lobes. IV Site on Arrival: 18 gauge in the left anticubital. IV Fluids: 0.9% NaCl at 75ml/hr. 0 mL infused prior to labor expediter. Pre Procedural Pulses: bilateral posterior tibial was 3+. Pre Procedural Pulses: bilateral dorsalis pedis was 3+. Pre Procedural Pulses: bilateral radial was 3+. Oxygen started at 2liters/min via nasal canula. right groin was prepped with chloroprep then draped in the usual sterile fashion. right radial was prepped with chloroprep then draped in the usual sterile fashion. Physician notified. Baseline sample Acquired. HR: 66 BPM. Physician arrived. Physician scrubbed in. Immediate Pre-Procedure Time Out. Correct Patient: Yes; Correct Procedure: Yes; Correct Site: Yes; Correct Patient Position: Yes; Correct Supplies: Yes; Dried Flammable Prep: No; Blood Products Available: No;. Lidocaine 1% infiltrated to the right radial. Arterial access obtained. A 5 cambodian Rajinder catheter in over wire. Wire out. hand injection through rajinder of right subclavian artery. Catheter removed over the exchange wire. A TR Band was successful obtaining hemostatsis at the Right Radial artery insertion site. Lidocaine 1% infiltrated to the right groin. Arterial access obtained with micropuncture set. A 5 cambodian JL4 catheter in over wire. Multiple views taken of left coronary artery. Catheter removed over the standard wire. A 5 cambodian JR4 catheter in over wire. Multiple views taken of right coronary artery. Catheter removed over the standard wire. A 5 cambodian Angled Pig catheter in over wire. EDP Sample taken: LV 123/14,24; HR: 63 BPM; SpO2: 97%. LV gram performed in SWANSON @ 10 mL/second for a total of 30 mL. EDP Sample taken: LV 131/-10,11; HR: 61 BPM; SpO2: 96%. Pullback taken: LV 123/-7,13; AO 121/68(94); Mean: 19mmHg, Peak to Peak: 2mmHg, SEP: 5sec/min; HR: 63 BPM; SpO2: 96%. Catheter removed over the standard wire. Physician scrubbed out. A Suture was successful obtaining hemostatsis at the Right Femoral artery insertion site. Sheath(s) sutured into position with 2-0 silk and sterile 4x4's and Op-site applied over the site. No oozing or signs and symptoms of hematoma noted. Arterial sheath flushed and connected to tranducer and pressure bag with heparinized saline. Post Procedure: Pulses reassessed and unchanged. PERRLA. 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 No VTE prophylaxis required. Post-op diagnosis: Cardiomyopathy, LV diastolic dysfunction , Mild CAD. Medication's Wasted: Lidocaine 1% = 10 mL. Medication's Wasted: Nitro = 49.9 mg. Medication's Wasted: Heparin = 2500 unit. Medication's Wasted: Other = Fentanyl 50mcg. Total IV fluids: 280 mL. Complications: None. Estimated blood loss: 5mL-10mL. Responsiveness - Normal response to verbal stimuli; alert and oriented, PERRLA. Airway - Unaffected, no intervention required; spontaneous ventilation. Circulation: W/N/L, pulses unchanged. Nausea/Vomiting: No. Procedure completed. Patient transferred by bed to 1st floor. Vital chart was stopped. Access Site Site: Right Radial artery Sheath Size: 6 Fr Hemostasis Method: TR Band Hemostasis Success: Successful Site: Right Femoral artery Sheath Size: 5 Fr Hemostasis Method: Suture Hemostasis Success: Successful Procedure Medications Start: 7:22 AM Stop: 7:22 AM Medication: Versed Amount: 1 mg Route: I.V. Start: 7:22 AM Stop: 7:22 AM Medication: Fentanyl Amount: 50 mcg Route: I.V. Start: 7:28 AM Stop: 7:28 AM Medication: Verapamil Amount: 5 mg Route: I.A. Start: 7:29 AM Stop: 7:29 AM Medication: 0.9% Saline Amount: 250 ml Route: I.V. bolus Start: 7:29 AM Stop: 7:29 AM Medication: Nitrogylcerin Amount: 100 mcg Route: I.A. Start: 7:42 AM Stop: 7:42 AM Medication: Heparin Amount: 1500 units Route: I.V. Start: 7:44 AM Stop: 7:44 AM Medication: Versed Amount: 1 mg Route: I.V. I, the attending physician, have reviewed and verified all procedure medications. Yes, all medications given per verbal order History/Risk Factors Hypertension: Yes Dyslipidemia: Yes Peripheral Arterial Disease (PAD): No Myocardial Infarction (NE): No Obesity: No Renal Disease: No Tobacco Use: Never Prior Interventions PCI: No CABG: No Valve Surgery: No Report Signatures Finalized by Dr Shiva Franco MD [facility] on 08/22/2023 02:09 PM
[2023-08-22] MEDS: diphenhydrAMINE 50 mg Capsule PO (06:15)
[2023-08-22] MEDS: aspirin 325 mg Tablet PO (06:15)
--- NOTE | 2023-08-22 07:11 | W.PM.OPSUD ---
Surgery/Procedure H&P Update DATE OF PROCEDURE: August 22, 2023 DATE H&P PERFORMED: 08/13/23 H&P UPDATE INFORMATION: I have reviewed H&P completed within last 30 days, I have examined patient prior to procedure and No changes to prior documentation PREOP DIAGNOSIS: ASHD PRIMARY INDICATION FOR PROCEDURE: Abnormal myocardial perfusion imaging, abnormal echocardiogram, ongoing chest pain, multiple risk factors PLANNED PROCEDURE: Operation Date: 08/22/23 07:00 Proposed Procedures p Cardiac Catheterization/C 57545, R94.39, R07.9(Left) - Shiva Franco MD PATIENT REASSESSED PRIOR TO SEDATION, WITH NO CHANGE NOTED: Yes PHYSICAL EXAM: alert, oriented x 3, clear to auscultation bilaterally, regular rate & rhythm and operative site marked AIRWAY EVAL/ANESTHESIA PLAN: normal airway, see other exam findings, ASA III, Monitored Anesthesia, Local Anesthesia, Risks, benefits & alternatives of sedation and/or procedure discussed and Patient agrees to continue as planned
[2023-08-22 11:33] VITALS: PULSE 102; O2SAT 93
[2023-08-22] MEDS: potassium chloride ER 10 mEq Tablet PO (13:23)
[2023-08-22] MEDS: pantoprazole DR 40 mg Tablet PO (13:24)
[2023-08-22] MEDS: gabapentin 100 mg Capsule PO (13:24)
[2023-08-22 14:50] VITALS: PULSE 68; RESP 16
== END 2023-08-22 16:00 | disposition home or self-care (01) ==
LOC: CCL 05:59 → CSU 08:42
PROVIDERS: PCP Family Medicine; Visit Provider Internal Medicine Cardiovascular Disease
DX: I25.10 Atherosclerotic heart disease of native coronary artery without angina pectoris (principal); I10 Essential (primary) hypertension; E78.5 Hyperlipidemia, unspecified; E11.9 Type 2 diabetes mellitus without complications
CPT/HCPCS: 36415; 93458; 96365; 99152; 99153; C1769; C1887; C1894; J1644; J2250; J3010; J3490; J7030; Q0163; Q9967

== ENCOUNTER 2023-08-23 07:56 | Oncology outpatient (recurring) (ONCR) | payer OTHER, SELFPAY ==
[2023-08-23] VITALS (7 sets, daily range): BP systolic 111–144; BP diastolic 67–88; PULSE 63–68; RESP 16–18; TEMP 36.1–36.8; O2SAT 93–99; BMI 33.1
[2023-08-23] MEDS: diphenhydrAMINE 25 mg Capsule 50 MG PO (08:41)
[2023-08-23] MEDS: acetaminophen 500 mg Tablet 1000 MG PO (08:42)
[2023-08-23] MEDS: sodium chloride 0.9% 250 ML 75 ML IV (08:43)
[2023-08-23] MEDS: IMMUNE GLOBULIN IV (08:59)
[2023-08-23] MEDS: [UNRECOGNIZED DRUG - OTHER] IV (08:59)
== END 2023-08-23 23:59 | disposition home or self-care (01) ==
LOC: ONCMED 07:57
PROVIDERS: PCP Family Medicine; Visit Provider Specialist
DX: G61.81 Chronic inflammatory demyelinating polyneuritis (principal)
CPT/HCPCS: 96365; 96366; J1459; J7050

== ENCOUNTER 2023-08-24 07:58 | Oncology outpatient (recurring) (ONCR) | payer OTHER, SELFPAY ==
[2023-08-24] VITALS (9 sets, daily range): BP systolic 102–120; BP diastolic 68–79; PULSE 56–69; RESP 16–17; TEMP 35.7–36.7; O2SAT 94–98
[2023-08-24] MEDS: acetaminophen 500 mg Tablet 1000 MG PO (08:08)
[2023-08-24] MEDS: diphenhydrAMINE 25 mg Capsule 50 MG PO (08:08)
[2023-08-24] MEDS: sodium chloride 0.9% 250 ML 50 ML IV (08:08)
== END 2023-08-24 23:59 | disposition home or self-care (01) ==
PROVIDERS: PCP Family Medicine; Visit Provider Specialist
DX: G61.81 Chronic inflammatory demyelinating polyneuritis (principal)
CPT/HCPCS: 96365; 96366; J1459; J7050

== ENCOUNTER → 2023-09-04 13:47 | Outpatient (BNVA) | payer OTHER, SELFPAY | PROVIDERS: PCP Family Medicine; Visit Provider Nurse Practitioner Family | DX: R00.2 Palpitations (principal); I25.118 Atherosclerotic heart disease of native coronary artery with other forms of angina pectoris | CPT/HCPCS: 93005 ==

== ENCOUNTER 2023-09-06 07:58 | Oncology outpatient (recurring) (ONCR) | payer OTHER, SELFPAY ==
[2023-09-06] VITALS (9 sets, daily range): BP systolic 105–113; BP diastolic 61–74; PULSE 52–61; RESP 16; TEMP 35.9–36.7; O2SAT 94–97
[2023-09-06] MEDS: diphenhydrAMINE 25 mg Capsule 50 MG PO (08:49)
[2023-09-06] MEDS: acetaminophen 500 mg Tablet 1000 MG PO (08:49)
[2023-09-06] MEDS: sodium chloride 0.9% 250 ML 75 ML IV (08:51)
[2023-09-06] MEDS: [UNRECOGNIZED DRUG - OTHER] IV (09:13)
[2023-09-06] MEDS: IMMUNE GLOBULIN IV (09:13)
== END 2023-09-06 23:59 | disposition home or self-care (01) ==
PROVIDERS: PCP Family Medicine; Visit Provider Specialist
DX: G61.81 Chronic inflammatory demyelinating polyneuritis (principal)
CPT/HCPCS: 96365; 96366; J1459; J7050

== ENCOUNTER 2023-09-07 07:55 | Oncology outpatient (recurring) (ONCR) | payer OTHER, SELFPAY ==
[2023-09-07] VITALS (9 sets, daily range): BP systolic 104–118; BP diastolic 64–79; PULSE 52–64; RESP 16; TEMP 36.6–36.8; O2SAT 92–98
[2023-09-07] MEDS: sodium chloride 0.9% 250 ML 75 ML IV (08:14)
[2023-09-07] MEDS: diphenhydrAMINE 25 mg Capsule 50 MG PO (08:15)
[2023-09-07] MEDS: acetaminophen 500 mg Tablet 1000 MG PO (08:15)
[2023-09-07] MEDS: IMMUNE GLOBULIN IV (09:00)
[2023-09-07] MEDS: [UNRECOGNIZED DRUG - OTHER] IV (09:00)
== END 2023-09-07 23:59 | disposition home or self-care (01) ==
LOC: ONCMED 07:56
PROVIDERS: PCP Family Medicine; Visit Provider Specialist
DX: G61.81 Chronic inflammatory demyelinating polyneuritis (principal)
CPT/HCPCS: 96365; 96366; J1459; J7050

== ENCOUNTER 2023-09-20 07:51 | Oncology outpatient (recurring) (ONCR) | payer OTHER, SELFPAY ==
[2023-09-20] VITALS (8 sets, daily range): BP systolic 106–114; BP diastolic 64–76; PULSE 58–68; RESP 16–17; TEMP 35.9–36.7; O2SAT 94–97
[2023-09-20] MEDS: acetaminophen 500 mg Tablet 1000 MG PO (08:13)
[2023-09-20] MEDS: diphenhydrAMINE 25 mg Capsule 50 MG PO (08:13)
[2023-09-20] MEDS: IMMUNE GLOBULIN IV (08:40)
[2023-09-20] MEDS: [UNRECOGNIZED DRUG - OTHER] IV (08:40)
== END 2023-09-20 23:59 | disposition home or self-care (01) ==
LOC: ONCMED 07:52
PROVIDERS: PCP Family Medicine; Visit Provider Specialist
DX: G61.81 Chronic inflammatory demyelinating polyneuritis (principal)
CPT/HCPCS: 96365; 96366; J1459

== ENCOUNTER 2023-09-21 07:10 | Oncology outpatient (recurring) (ONCR) | payer OTHER, SELFPAY ==
[2023-09-21] VITALS (8 sets, daily range): BP systolic 108–129; BP diastolic 72–82; PULSE 61–84; RESP 16–17; TEMP 36.2–36.8; O2SAT 94–97
[2023-09-21] MEDS: diphenhydrAMINE 25 mg Capsule 50 MG PO (08:09)
[2023-09-21] MEDS: acetaminophen 500 mg Tablet 1000 MG PO (08:09)
[2023-09-21] MEDS: [UNRECOGNIZED DRUG - OTHER] IV (08:30)
[2023-09-21] MEDS: IMMUNE GLOBULIN IV (08:30)
== END 2023-09-21 23:59 | disposition home or self-care (01) ==
PROVIDERS: PCP Family Medicine; Visit Provider Specialist
DX: G61.81 Chronic inflammatory demyelinating polyneuritis (principal)
CPT/HCPCS: 96365; 96366; J1459

== ENCOUNTER 2023-10-04 08:03 | Oncology outpatient (recurring) (ONCR) | payer OTHER, SELFPAY ==
[2023-10-04] VITALS (9 sets, daily range): BP systolic 110–138; BP diastolic 69–87; PULSE 55–69; RESP 16–18; TEMP 36.1–36.8; O2SAT 92–97
[2023-10-04] MEDS: acetaminophen 325 mg Tablet 650 MG PO (08:44)
[2023-10-04] MEDS: diphenhydrAMINE 50 mg/mL SDV 1mL 25 MG IVP (08:44)
[2023-10-04] MEDS: IMMUNE GLOBULIN IV (09:20)
[2023-10-04] MEDS: FLEXIBLE CONTAINER IV (09:20)
== END 2023-10-04 23:59 | disposition home or self-care (01) ==
PROVIDERS: PCP Family Medicine; Visit Provider Specialist
DX: G61.81 Chronic inflammatory demyelinating polyneuritis (principal)
CPT/HCPCS: 96365; 96366; 96375; J1200; J1459

== ENCOUNTER 2023-10-18 07:57 | Oncology outpatient (recurring) (ONCR) | payer OTHER, SELFPAY ==
[2023-10-18] VITALS (9 sets, daily range): BP systolic 115–145; BP diastolic 63–93; PULSE 57–65; RESP 16–17; TEMP 35.8–36.9; O2SAT 94–98
[2023-10-18] MEDS: sodium chloride 0.9% 250 ML 75 ML IV (08:18)
[2023-10-18] MEDS: acetaminophen 325 mg Tablet 650 MG PO (08:19)
[2023-10-18] MEDS: diphenhydrAMINE 50 mg/mL SDV 1mL 25 MG IVP (08:20)
[2023-10-18] MEDS: IMMUNE GLOBULIN IV (08:40)
[2023-10-18] MEDS: FLEXIBLE CONTAINER IV (08:40)
== END 2023-10-18 23:59 | disposition home or self-care (01) ==
PROVIDERS: PCP Family Medicine; Visit Provider Specialist
DX: G61.81 Chronic inflammatory demyelinating polyneuritis (principal)
CPT/HCPCS: 96365; 96366; 96375; J1200; J1459; J7050

== ENCOUNTER 2023-11-01 07:38 | Oncology outpatient (recurring) (ONCR) | payer OTHER, SELFPAY ==
[2023-11-01] VITALS (9 sets, daily range): BP systolic 111–135; BP diastolic 73–84; PULSE 56–65; RESP 16–17; TEMP 36.3–37; O2SAT 94–98
[2023-11-01] MEDS: acetaminophen 325 mg Tablet 650 MG PO (08:07)
[2023-11-01] MEDS: sodium chloride 0.9% 250 ML 75 ML IV (08:08)
[2023-11-01] MEDS: diphenhydrAMINE 50 mg/mL SDV 1mL 25 MG IVP (08:13)
[2023-11-01] MEDS: IMMUNE GLOBULIN IV (08:55)
[2023-11-01] MEDS: FLEXIBLE CONTAINER IV (08:55)
== END 2023-11-01 23:59 | disposition home or self-care (01) ==
LOC: ONCMED 07:38
PROVIDERS: PCP Family Medicine; Visit Provider Specialist
DX: G61.81 Chronic inflammatory demyelinating polyneuritis (principal)
CPT/HCPCS: 96365; 96366; 96375; J1200; J1459; J7050

== ENCOUNTER 2023-11-15 08:00 | Oncology outpatient (recurring) (ONCR) | payer OTHER, SELFPAY ==
[2023-11-15] VITALS (9 sets, daily range): BP systolic 112–130; BP diastolic 73–89; PULSE 49–58; RESP 16–18; TEMP 36–36.8; O2SAT 94–98
[2023-11-15] MEDS: acetaminophen 325 mg Tablet 650 MG PO (08:20)
[2023-11-15] MEDS: diphenhydrAMINE 50 mg/mL SDV 1mL 25 MG IVP (08:21)
[2023-11-15] MEDS: IMMUNE GLOBULIN IV (08:31)
[2023-11-15] MEDS: FLEXIBLE CONTAINER IV (08:31)
== END 2023-11-15 23:59 | disposition home or self-care (01) ==
PROVIDERS: PCP Family Medicine; Visit Provider Specialist
DX: G61.81 Chronic inflammatory demyelinating polyneuritis (principal)
CPT/HCPCS: 96365; 96366; 96375; J1200; J1459

== ENCOUNTER 2023-11-29 07:53 | Oncology outpatient (recurring) (ONCR) | payer OTHER, SELFPAY ==
[2023-11-29] VITALS (9 sets, daily range): BP systolic 103–118; BP diastolic 67–74; PULSE 61–75; RESP 16; TEMP 35.7–37; O2SAT 96–98
[2023-11-29] MEDS: acetaminophen 325 mg Tablet 650 MG PO (08:49)
[2023-11-29] MEDS: sodium chloride 0.9% 250 ML 75 ML IV (08:50)
[2023-11-29] MEDS: diphenhydrAMINE 50 mg/mL SDV 1mL 25 MG IVP (08:55)
[2023-11-29] MEDS: IMMUNE GLOBULIN IV (09:20)
[2023-11-29] MEDS: FLEXIBLE CONTAINER IV (09:20)
== END 2023-11-29 23:59 | disposition home or self-care (01) ==
LOC: ONCMED 07:54
PROVIDERS: PCP Family Medicine; Visit Provider Specialist
DX: G61.81 Chronic inflammatory demyelinating polyneuritis (principal)
CPT/HCPCS: 96365; 96366; 96374; J1200; J1459; J7050

== ENCOUNTER 2023-12-13 07:59 | Oncology outpatient (recurring) (ONCR) | payer OTHER, SELFPAY ==
[2023-12-13] VITALS (9 sets, daily range): BP systolic 100–126; BP diastolic 60–75; PULSE 16–88; RESP 16–58; TEMP 35.9–36.7; O2SAT 95–99
[2023-12-13] MEDS: acetaminophen 325 mg Tablet 650 MG PO ×2 (08:35→08:48)
[2023-12-13] MEDS: sodium chloride 0.9% 250 ML 75 ML IV (08:42)
[2023-12-13] MEDS: diphenhydrAMINE 50 mg/mL SDV 1mL 25 MG IVP (08:46)
[2023-12-13] MEDS: FLEXIBLE CONTAINER IV (09:05)
[2023-12-13] MEDS: IMMUNE GLOBULIN IV (09:05)
== END 2023-12-13 23:59 | disposition home or self-care (01) ==
LOC: ONCMED 07:59
PROVIDERS: PCP Family Medicine; Visit Provider Specialist
DX: G61.81 Chronic inflammatory demyelinating polyneuritis (principal)
CPT/HCPCS: 96365; 96366; 96375; J1200; J1459; J7050

== ENCOUNTER 2023-12-27 07:50 | Oncology outpatient (recurring) (ONCR) | payer OTHER, SELFPAY ==
[2023-12-27] VITALS (9 sets, daily range): BP systolic 103–126; BP diastolic 65–79; PULSE 60–94; RESP 16–18; TEMP 35.9–36.5; O2SAT 95–99
[2023-12-27] MEDS: sodium chloride 0.9% (100 ml) 100 ML 75 ML (08:26)
[2023-12-27] MEDS: diphenhydrAMINE 50 mg/mL SDV 1mL 25 MG IVP (08:30)
[2023-12-27] MEDS: acetaminophen 325 mg Tablet 650 MG PO (08:32)
[2023-12-27] MEDS: FLEXIBLE CONTAINER IV (09:00)
[2023-12-27] MEDS: IMMUNE GLOBULIN IV (09:00)
== END 2023-12-27 23:59 | disposition home or self-care (01) ==
PROVIDERS: PCP Family Medicine; Visit Provider Specialist
DX: G61.81 Chronic inflammatory demyelinating polyneuritis (principal)
CPT/HCPCS: 96365; 96366; 96375; J1200; J1459

== ENCOUNTER 2024-01-10 07:59 | Oncology outpatient (recurring) (ONCR) | payer OTHER, SELFPAY ==
[2024-01-10] VITALS (9 sets, daily range): BP systolic 116–145; BP diastolic 58–82; PULSE 57–79; RESP 16–18; TEMP 36.1–36.9; O2SAT 94–98; BMI 34.7
[2024-01-10] MEDS: acetaminophen 325 mg Tablet 650 MG PO (08:37)
[2024-01-10] MEDS: FLEXIBLE CONTAINER IV (09:07)
[2024-01-10] MEDS: IMMUNE GLOBULIN IV (09:07)
--- NOTE | 2024-01-10 09:57 | PC.NURSE ---
0830 PT refused tylenol this treatment day. Tolerated well.
== END 2024-01-10 23:59 | disposition home or self-care (01) ==
LOC: ONCMED 07:59
PROVIDERS: PCP Family Medicine; Visit Provider Specialist
DX: G61.81 Chronic inflammatory demyelinating polyneuritis (principal)
CPT/HCPCS: 96365; 96366; J1459

== ENCOUNTER 2024-01-24 08:05 | Oncology outpatient (recurring) (ONCR) | payer OTHER, SELFPAY ==
[2024-01-24] VITALS (10 sets, daily range): BP systolic 108–146; BP diastolic 68–85; PULSE 60–70; RESP 16–17; TEMP 35.9–36.7; O2SAT 94–98
[2024-01-24] MEDS: acetaminophen 325 mg Tablet 650 MG PO (08:44)
[2024-01-24] MEDS: sodium chloride 0.9% 250 ML 75 ML IV (08:49)
[2024-01-24] MEDS: IMMUNE GLOBULIN IV (08:55)
[2024-01-24] MEDS: FLEXIBLE CONTAINER IV (08:55)
== END 2024-01-24 23:59 | disposition home or self-care (01) ==
PROVIDERS: PCP Family Medicine; Visit Provider Specialist
DX: G61.81 Chronic inflammatory demyelinating polyneuritis (principal); Z79.620 Long term (current) use of immunosuppressive biologic
CPT/HCPCS: 96365; 96366; J1459; J7050

== ENCOUNTER 2024-02-07 08:00 | Oncology outpatient (recurring) (ONCR) | payer OTHER, SELFPAY ==
[2024-02-07] VITALS (10 sets, daily range): BP systolic 113–144; BP diastolic 73–86; PULSE 55–69; RESP 16; TEMP 36.3–36.8; O2SAT 93–97
[2024-02-07] MEDS: acetaminophen 325 mg Tablet 650 MG PO (08:41)
[2024-02-07] MEDS: IMMUNE GLOBULIN IV (09:06)
[2024-02-07] MEDS: FLEXIBLE CONTAINER IV (09:06)
== END 2024-02-07 23:59 | disposition home or self-care (01) ==
LOC: ONCMED 08:01
PROVIDERS: PCP Family Medicine; Visit Provider Specialist
DX: G61.81 Chronic inflammatory demyelinating polyneuritis (principal)
CPT/HCPCS: 96365; 96366; J1459

== ENCOUNTER 2024-02-21 08:00 | Oncology outpatient (recurring) (ONCR) | payer OTHER, SELFPAY ==
[2024-02-21] VITALS (10 sets, daily range): BP systolic 120–158; BP diastolic 77–91; PULSE 52–68; RESP 16–17; TEMP 35.8–36.8; O2SAT 94–96
[2024-02-21] MEDS: acetaminophen 325 mg Tablet 650 MG PO (08:32)
[2024-02-21] MEDS: IMMUNE GLOBULIN IV (08:41)
[2024-02-21] MEDS: FLEXIBLE CONTAINER IV (08:41)
== END 2024-02-21 23:59 | disposition home or self-care (01) ==
LOC: ONCMED 08:01
PROVIDERS: PCP Family Medicine; Visit Provider Specialist
DX: G61.81 Chronic inflammatory demyelinating polyneuritis (principal); Z79.620 Long term (current) use of immunosuppressive biologic
CPT/HCPCS: 96365; 96366; J1459

== ENCOUNTER 2024-03-06 07:59 | Oncology outpatient (recurring) (ONCR) | payer OTHER, SELFPAY ==
[2024-03-06] VITALS (9 sets, daily range): BP systolic 118–136; BP diastolic 78–90; PULSE 52–84; RESP 16–18; TEMP 35.8–36.8; O2SAT 94–97
[2024-03-06] MEDS: acetaminophen 325 mg Tablet 650 MG PO (08:31)
[2024-03-06] MEDS: IMMUNE GLOBULIN IV (08:36)
[2024-03-06] MEDS: FLEXIBLE CONTAINER IV (08:36)
--- NOTE | 2024-03-06 10:56 | PC.NURSE ---
IV in left forearm infiltrated with the IV stopped and removed intracath with no reddness or pain at site ,warm compress applied. IV restarted in right forearm with #22 intracath with good blood return. IVIG restarted.mm
== END 2024-03-06 23:59 | disposition home or self-care (01) ==
PROVIDERS: PCP Family Medicine; Visit Provider Specialist
DX: G61.81 Chronic inflammatory demyelinating polyneuritis (principal); Z79.899 Other long term (current) drug therapy
CPT/HCPCS: 96365; 96366; J1459

== ENCOUNTER 2024-03-12 10:04 | Outpatient (CLI) | payer OTHER, SELFPAY ==
--- NOTE | 2024-03-12 10:16 | XR_ITS ---
WS: [email or web address] Examination: XR lumbar spine 2-3V* [id number] Reason for Exam: Left lumbar radiculopathy Date: March 12, 2024 Comparison: May 04, 2023 Findings: The pedicles and the bone density are maintained. Again minimal L3 anterior wedging is noted. There i s no new lumbar wedging or compression. Anterior lipping and osteophytes are identified particularly at T12-L1 and L1-2. There is no subluxation. The disc spaces are generally maintained. XR/XR lumbar spine 2-3V* [id number] Impression: Again old mild L3 wedging is noted Diffuse degenerative changes are noted without acute compression or subluxation .
--- NOTE | 2024-03-12 10:16 | XR_ITS ---
WS: [email or web address] Examination: XR hip LT 2-3V wo/w pel* [id number] Reason for Exam: Hip pain left Date: March 12, 2024 Comparison: None. Findings: The bone density is maintained. There is no destruction There is no displaced fracture or dislocation. Significant degenerative changes are not appreciated. XR/XR hip LT 2-3V wo/w pel* [id number] Impression: No acute bony abnormality is noted.
--- NOTE | 2024-03-12 10:16 | XR_ITS ---
WS: [email or web address] Examination: XR shoulder LT min 2V* [id number] Reason for Exam: Shoulder pain left Date: March 12, 2024 Comparison: None. Findings: The bone density is maintained. There is no destruction There is no displaced fracture or dislocation Degenerative changes with spurring at the AC joint is identified. There is sclerosis and cyst formati on involving the glenoid with the humeral osteophytes. 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
== END 2024-03-12 10:05 | disposition home or self-care (01) ==
PROVIDERS: PCP Family Medicine; Visit Provider Family Medicine
DX: M25.512 Pain in left shoulder (principal); M54.16 Radiculopathy, lumbar region; M25.552 Pain in left hip; M19.012 Primary osteoarthritis, left shoulder; M51.36 Other intervertebral disc degeneration, lumbar region
CPT/HCPCS: 72100; 73030; 73502

== ENCOUNTER 2024-03-20 07:58 | Oncology outpatient (recurring) (ONCR) | payer OTHER, SELFPAY ==
[2024-03-20] VITALS (8 sets, daily range): BP systolic 114–132; BP diastolic 73–81; PULSE 57–69; RESP 16; TEMP 35.8–36.7; O2SAT 92–98
[2024-03-20] MEDS: sodium chloride 0.9% 250 ML 75 ML IV (08:17)
[2024-03-20] MEDS: acetaminophen 325 mg Tablet 650 MG PO (08:19)
[2024-03-20 08:21] LABS: Basophils # 0.1 10^3/uL (0.0-0.1); Basophils % 0.6 %; Eosinophils # 0.1 10^3/uL (0.0-0.8); Eosinophils % 0.9 %; Hematocrit 44.2 % (37-53); Lymphocytes # 2.2 10^3/uL (0.8-4.8); Lymphocytes % 26.6 %; Mean Corpuscular Hemoglobin 30.3 pg (27-33); Mean Corpuscular Volume 84.2 fl (82-101); Mean Platelet Volume 10.3 fL (7.4-10.4); Monocytes # 0.6 10^3/uL (0.2-0.9); Monocytes % 7.6 %; Neutrophils # 5.15 10^3/uL (1.8-7.7); Neutrophils % 63.8 %; Nucleated Red Blood Cells % 0 %; Platelet Count 278 10^3/cmm (157-399); Red Blood Count 5.25 10^6/uL (3.85-5.65); Red Cell Distribution Width 11.8 % (12.1-15.1); White Blood Count 8.07 10^3/uL (3.29-11.43)
[2024-03-20] MEDS: FLEXIBLE CONTAINER IV (08:30)
[2024-03-20] MEDS: IMMUNE GLOBULIN IV (08:30)
--- NOTE | 2024-03-20 08:31 | PC.NURSE ---
patient declines benadryl premedication
[2024-03-20 08:43] LABS: Alanine Aminotransferase 37 U/L (0-41); Albumin Level 4.1 g/dL (3.5-5.2); Alkaline Phosphatase 79 U/L (40-130); Blood Urea Nitrogen 13 mg/dL (6-20); Calcium 9.8 mg/dL (8.5-10.5); Carbon Dioxide 22 mmol/L (22-29); Chloride 99 mmol/L (98-107); Cholesterol 188 mg/dL (0-200); Creatinine Clr Calc Pharmacy 165.7972; Globulin 4.6 g/dL (1.3-4.6); Glomerular Filtration Rate 117.1 mL/min (90-130); Glucose 219 mg/dL (65-115); HDL Cholesterol 33 mg/dL (60-100); LDL Cholesterol Calculated 110 mg/dL (50-129); LDL HDL Ratio 3.33 RATIO (0.00-3.22); Osmolality Calculated 285 mOsm/kg (285-295); Sodium 134 mmol/L (136-145); Total Bilirubin 0.4 mg/dL (0.15-1.2); Total Protein 8.7 g/dL (6.6-8.7); Triglycerides 223 mg/dL (0-150)
[2024-03-20 08:45] LABS: Estmated Average Glucose 220; Hemoglobin A1C 9.3 % (4.0-6.0)
[2024-03-20 08:48] LABS: Anion Gap 17.6 (5-19); Aspartate Amino Transferase 32 U/L (0-40); Potassium 4.6 mmol/L (3.5-5.1)
== END 2024-03-20 23:59 | disposition home or self-care (01) ==
PROVIDERS: PCP Family Medicine; Visit Provider Specialist
DX: G61.81 Chronic inflammatory demyelinating polyneuritis (principal); Z79.899 Other long term (current) drug therapy; Z51.81 Encounter for therapeutic drug level monitoring; E11.9 Type 2 diabetes mellitus without complications; Z13.220 Encounter for screening for lipoid disorders
CPT/HCPCS: 80053; 80061; 83036; 85025; 96365; 96366; J1459; J7050

== ENCOUNTER 2024-04-03 08:02 | Oncology outpatient (recurring) (ONCR) | payer OTHER, SELFPAY ==
[2024-04-03] VITALS (10 sets, daily range): BP systolic 111–138; BP diastolic 71–81; PULSE 51–66; RESP 16–17; TEMP 36–36.6; O2SAT 95–97
[2024-04-03] MEDS: acetaminophen 325 mg Tablet 650 MG PO (08:53)
[2024-04-03] MEDS: FLEXIBLE CONTAINER IV (09:30)
[2024-04-03] MEDS: IMMUNE GLOBULIN IV (09:30)
== END 2024-04-03 23:59 | disposition home or self-care (01) ==
LOC: ONCMED 08:02
PROVIDERS: PCP Family Medicine; Visit Provider Specialist
DX: G61.81 Chronic inflammatory demyelinating polyneuritis (principal); Z79.899 Other long term (current) drug therapy
CPT/HCPCS: 96365; 96366; J1459

== ENCOUNTER 2024-04-17 07:56 | Oncology outpatient (recurring) (ONCR) | payer OTHER, SELFPAY ==
[2024-04-17] VITALS (9 sets, daily range): BP systolic 115–141; BP diastolic 73–87; PULSE 57–72; RESP 16–17; TEMP 36.6–36.9; O2SAT 93–98
[2024-04-17] MEDS: acetaminophen 325 mg Tablet 650 MG PO (08:17)
[2024-04-17] MEDS: IMMUNE GLOBULIN IV (08:18)
[2024-04-17] MEDS: FLEXIBLE CONTAINER IV (08:18)
== END 2024-04-17 23:59 | disposition home or self-care (01) ==
LOC: ONCMED 07:57
PROVIDERS: PCP Family Medicine; Visit Provider Specialist
DX: G61.81 Chronic inflammatory demyelinating polyneuritis (principal); Z79.620 Long term (current) use of immunosuppressive biologic
CPT/HCPCS: 96365; 96366; J1459

== ENCOUNTER → 2024-04-24 09:24 | Outpatient (BNVA) | payer OTHER, SELFPAY | PROVIDERS: PCP Family Medicine; Visit Provider Nurse Practitioner Family | DX: I49.3 Ventricular premature depolarization (principal) | CPT/HCPCS: 93005 ==

== ENCOUNTER 2024-05-01 08:00 | Oncology outpatient (recurring) (ONCR) | payer OTHER, SELFPAY ==
[2024-05-01] VITALS (9 sets, daily range): BP systolic 117–149; BP diastolic 62–89; PULSE 52–86; RESP 16; TEMP 36.4–36.9; O2SAT 94–97
[2024-05-01] MEDS: acetaminophen 325 mg Tablet 650 MG PO (08:20)
[2024-05-01] MEDS: FLEXIBLE CONTAINER IV (08:34)
[2024-05-01] MEDS: IMMUNE GLOBULIN IV (08:34)
--- NOTE | 2024-05-01 08:54 | PC.NURSE ---
patient refused benadryl premedication
== END 2024-05-01 23:59 | disposition home or self-care (01) ==
PROVIDERS: PCP Family Medicine; Visit Provider Specialist
DX: G61.81 Chronic inflammatory demyelinating polyneuritis (principal); Z79.899 Other long term (current) drug therapy
CPT/HCPCS: 96365; 96366; J1459

== ENCOUNTER 2024-05-15 08:05 | Oncology outpatient (recurring) (ONCR) | payer OTHER, SELFPAY ==
[2024-05-15] VITALS (8 sets, daily range): BP systolic 105–153; BP diastolic 66–95; PULSE 51–60; RESP 16; TEMP 35.9–36.5; O2SAT 92–97
[2024-05-15] MEDS: acetaminophen 325 mg Tablet 650 MG PO (08:30)
[2024-05-15] MEDS: IMMUNE GLOBULIN IV (08:40)
[2024-05-15] MEDS: FLEXIBLE CONTAINER IV (08:40)
--- NOTE | 2024-05-15 08:42 | PC.NURSE ---
patient declined premedication of benadryl.
== END 2024-05-15 23:59 | disposition home or self-care (01) ==
PROVIDERS: PCP Family Medicine; Visit Provider Specialist
DX: G61.81 Chronic inflammatory demyelinating polyneuritis (principal); Z79.899 Other long term (current) drug therapy; I49.3 Ventricular premature depolarization; I47.10 Supraventricular tachycardia, unspecified
CPT/HCPCS: 93005; 96365; 96366; J1459

== ENCOUNTER 2024-06-12 07:57 | Oncology outpatient (recurring) (ONCR) | payer OTHER, SELFPAY ==
[2024-06-12] VITALS (9 sets, daily range): BP systolic 111–152; BP diastolic 73–91; PULSE 57–71; RESP 16–18; TEMP 35.8–37; O2SAT 94–97
[2024-06-12] MEDS: acetaminophen 325 mg Tablet 650 MG PO (08:20)
[2024-06-12] MEDS: IMMUNE GLOBULIN IV (08:26)
[2024-06-12] MEDS: FLEXIBLE CONTAINER IV (08:26)
== END 2024-06-12 23:59 | disposition home or self-care (01) ==
PROVIDERS: PCP Family Medicine; Visit Provider Family Medicine
DX: G61.81 Chronic inflammatory demyelinating polyneuritis (principal); Z79.899 Other long term (current) drug therapy
CPT/HCPCS: 96365; 96366; J1459

== ENCOUNTER 2024-06-30 08:01 | Oncology outpatient (recurring) (ONCR) | payer OTHER, SELFPAY ==
[2024-06-30] VITALS (9 sets, daily range): BP systolic 101–148; BP diastolic 63–90; PULSE 58–69; RESP 16–17; TEMP 36.1–37; O2SAT 91–98
[2024-06-30] MEDS: acetaminophen 325 mg Tablet 650 MG PO (08:30)
--- NOTE | 2024-06-30 08:31 | PC.NURSE ---
Patient declined Benadryl IV as pre-med. Patient states the medication makes him to tired and does not feel safe to travel after treatment.
[2024-06-30] MEDS: [UNRECOGNIZED DRUG - OTHER] IV (08:56)
[2024-06-30] MEDS: IMMUNE GLOBULIN IV (08:56)
== END 2024-06-30 23:59 | disposition home or self-care (01) ==
PROVIDERS: PCP Family Medicine; Visit Provider Family Medicine
DX: G61.81 Chronic inflammatory demyelinating polyneuritis (principal); Z79.899 Other long term (current) drug therapy
CPT/HCPCS: 96365; 96366; J1459

== ENCOUNTER 2024-07-17 08:03 | Oncology outpatient (recurring) (ONCR) | payer OTHER, SELFPAY ==
[2024-07-17] MEDS: acetaminophen 325 mg Tablet 650 MG PO (08:40)
[2024-07-17 08:47] LABS: Estmated Average Glucose 194; Hemoglobin A1C 8.4 % (4.0-6.0)
[2024-07-17 09:00] VITALS: BP 127/80; PULSE 77; RESP 16; TEMP 36.7; O2SAT 96
[2024-07-17] MEDS: [UNRECOGNIZED DRUG - OTHER] IV (09:00)
[2024-07-17] MEDS: IMMUNE GLOBULIN IV (09:00)
[2024-07-17 09:15] VITALS: BP 115/73; PULSE 73; RESP 16; TEMP 36.9; O2SAT 96
[2024-07-17 10:45] VITALS: BP 152/85; PULSE 67; RESP 16; TEMP 36.6; O2SAT 94
[2024-07-17 11:45] VITALS: BP 144/80; PULSE 67; RESP 16; TEMP 35.9; O2SAT 99
[2024-07-17 16:07] VITALS: BP 147/81; PULSE 68; RESP 17; TEMP 36.6; O2SAT 98
== END 2024-07-17 23:59 | disposition home or self-care (01) ==
LOC: ONCMED 08:03
PROVIDERS: PCP Family Medicine; Visit Provider Family Medicine
DX: G61.81 Chronic inflammatory demyelinating polyneuritis (principal); E11.9 Type 2 diabetes mellitus without complications; Z79.899 Other long term (current) drug therapy
CPT/HCPCS: 83036; 96365; 96366; J1459

== ENCOUNTER 2024-08-13 10:00 | Outpatient (CLI) | payer OTHER, SELFPAY ==
--- NOTE | 2024-08-13 10:00 | USCV_ITS ---
Brayan Osorio Age: 54 Gender: M : 1970 Exam Date: 08/13/2024 10:29 Ordering Phys: Jil Epstein MD Technologist: CT Exam Location: [facility] – [place]_ Indication: swelling PROCEDURES: Venous duplex imaging was performed in only the left lower extremity. On the left side, the common femoral, superficial femoral, profunda femoral, popliteal, posterior tibial, greater saphenous veins, and the peroneal trunk were identified and interrogated in the standard fashion. These veins were found to be easily compressible with spontaneous blood flow. No evidence of insufficiency or thrombus noted. FINDINGS: occluded lsv no dvt CONCLUSIONS SVT in the LEFT lesser saphenous vein at the calf Remainder LLE veins patent Dr. Epstein notified at 1430 08/13/24 Wander Fontaine MD (Electronically Signed) Final Date: 13 August 2024 14:37 S
== END 2024-08-13 10:08 | disposition home or self-care (01) ==
PROVIDERS: PCP Family Medicine; Visit Provider Specialist
DX: I82.812 Embolism and thrombosis of superficial veins of left lower extremity (principal); R60.0 Localized edema
CPT/HCPCS: 93971

== ENCOUNTER 2024-08-14 08:04 | Oncology outpatient (recurring) (ONCR) | payer OTHER, SELFPAY ==
[2024-08-14 08:26] VITALS: BP 129/82; PULSE 88; RESP 18; TEMP 36.8; O2SAT 98
--- NOTE | 2024-08-14 08:47 | PC.NURSE ---
PT notified of having a doppler yesterday with abnormal results. Lona Mast examined pt and will contact primary provider.. treatment held awaiting MD decision. Left leg with 3+pitting edema. Cold to touch with positive pulses.
[2024-08-14] MEDS: acetaminophen 325 mg Tablet 650 MG PO (09:45)
[2024-08-14] MEDS: IMMUNE GLOBULIN IV (10:12)
[2024-08-14] MEDS: [UNRECOGNIZED DRUG - OTHER] IV (10:12)
[2024-08-14 10:15] VITALS: BP 125/79; PULSE 62; RESP 16; TEMP 36.2; O2SAT 96
[2024-08-14 10:30] VITALS: BP 119/78; PULSE 62; RESP 18; TEMP 36.1; O2SAT 96
[2024-08-14 13:15] VITALS: BP 121/77; PULSE 98; RESP 18; TEMP 36.6; O2SAT 99
--- NOTE | 2024-08-14 15:52 | PC.NURSE ---
0900 PT refused Oliver
== END 2024-08-14 23:59 | disposition home or self-care (01) ==
PROVIDERS: PCP Family Medicine; Visit Provider Family Medicine
DX: G61.81 Chronic inflammatory demyelinating polyneuritis (principal); Z79.899 Other long term (current) drug therapy
CPT/HCPCS: 96365; 96366; J1561

== ENCOUNTER 2024-08-26 11:20 | Outpatient (RCR) | payer OTHER, SELFPAY | END 2024-08-29 23:59 | disposition home or self-care (01) | LOC: SPT 11:20 | PROVIDERS: PCP Family Medicine; Visit Provider Specialist | DX: G61.81 Chronic inflammatory demyelinating polyneuritis (principal) | CPT/HCPCS: 97110; 97161 ==

== ENCOUNTER 2024-08-28 07:54 | Oncology outpatient (recurring) (ONCR) | payer OTHER, SELFPAY ==
[2024-08-28 08:23] VITALS: BP 125/86; PULSE 71; RESP 16; TEMP 36.6; O2SAT 99
[2024-08-28] MEDS: acetaminophen 325 mg Tablet 650 MG PO (09:04)
[2024-08-28] MEDS: [UNRECOGNIZED DRUG - OTHER] IV (09:43)
[2024-08-28] MEDS: IMMUNE GLOBULIN IV (09:43)
[2024-08-28 13:40] VITALS: BP 127/81; PULSE 67; TEMP 36.6; O2SAT 97
== END 2024-08-28 23:59 | disposition home or self-care (01) ==
PROVIDERS: PCP Family Medicine; Visit Provider Family Medicine
DX: Z51.12 Encounter for antineoplastic immunotherapy (principal); G61.81 Chronic inflammatory demyelinating polyneuritis; Z79.899 Other long term (current) drug therapy
CPT/HCPCS: 96365; 96366; J1561

== ENCOUNTER 2024-08-30 06:30 | Outpatient (RCR) | payer OTHER, SELFPAY | END 2024-09-26 23:59 | disposition home or self-care (01) | LOC: SPT 06:30 | PROVIDERS: PCP Family Medicine; Visit Provider Specialist | DX: G61.81 Chronic inflammatory demyelinating polyneuritis (principal); Z98.890 Other specified postprocedural states; M21.372 Foot drop, left foot | CPT/HCPCS: 97110 ==

== ENCOUNTER 2024-09-11 08:01 | Oncology outpatient (recurring) (ONCR) | payer OTHER, SELFPAY ==
[2024-09-11 08:16] VITALS: BP 147/84; PULSE 93; RESP 16; TEMP 36.3; O2SAT 98
[2024-09-11] MEDS: acetaminophen 325 mg Tablet 650 MG PO (08:39)
[2024-09-11] MEDS: IMMUNE GLOBULIN IV (09:18)
--- NOTE | 2024-09-11 09:21 | PC.NURSE ---
PT declined benadryl at this time. Will monitor
[2024-09-11 09:35] VITALS: BP 128/81; PULSE 81; RESP 16; TEMP 36.6; O2SAT 97
[2024-09-11 10:40] VITALS: BP 108/73; PULSE 80; RESP 17; TEMP 36.8; O2SAT 98
[2024-09-11 12:50] VITALS: BP 124/81; PULSE 79; RESP 17; TEMP 36.7; O2SAT 97
== END 2024-09-11 23:59 | disposition home or self-care (01) ==
LOC: ONCMED 08:01
PROVIDERS: PCP Family Medicine; Visit Provider Family Medicine
DX: G61.81 Chronic inflammatory demyelinating polyneuritis (principal); Z79.899 Other long term (current) drug therapy
CPT/HCPCS: 96365; 96366; J1561

== ENCOUNTER 2024-10-14 08:00 | Oncology outpatient (recurring) (ONCR) | payer OTHER, SELFPAY ==
--- NOTE | 2024-10-09 08:56 | PC.PHAR ---
IVIG CLARIFICATION: i spoke with ly over the phone yesterday. we received two different orders for patient's IVIG. ly wants patients dose to be 2g/kg. i explained we can not give that over one day. she agreed to give over 2 days. she was the frequency to be every 3 weeks. she wants pretreatment with tylenol and benadryl. i placed order for gamunexC 2g/kg over two days, repeat every 21 days. i asked kaycee to scan in new order.
[2024-10-13] MEDS: acetaminophen 500 mg Tablet 1000 MG PO (08:22)
[2024-10-13 09:10] VITALS: BP 115/73; PULSE 64; RESP 16; TEMP 35.9; O2SAT 95
[2024-10-13] MEDS: IMMUNE GLOBULIN IV (09:10)
[2024-10-13] MEDS: [UNRECOGNIZED DRUG - OTHER] IV (09:10)
[2024-10-13 09:25] LABS: Basophils # 0.1 10^3/uL (0.0-0.1); Basophils % 1.1 %; Eosinophils # 0.1 10^3/uL (0.0-0.8); Eosinophils % 1.9 %; Hematocrit 47.1 % (37-53); Lymphocytes # 2.2 10^3/uL (0.8-4.8); Lymphocytes % 29.8 %; Mean Corpuscular HGB Conc 33.1 g/dL (30-55); Mean Corpuscular Hemoglobin 28.8 pg (27-33); Mean Corpuscular Volume 86.9 fl (82-101); Mean Platelet Volume 9.6 fL (7.4-10.4); Monocytes # 0.6 10^3/uL (0.2-0.9); Monocytes % 7.6 %; Neutrophils # 4.41 10^3/uL (1.8-7.7); Neutrophils % 59.1 %; Nucleated Red Blood Cells % 0 %; Platelet Count 352 10^3/cmm (157-399); Red Blood Count 5.42 10^6/uL (3.85-5.65); Red Cell Distribution Width 12.5 % (12.1-15.1); White Blood Count 7.46 10^3/uL (3.29-11.43)
[2024-10-13 09:54] LABS: Alanine Aminotransferase 27 U/L (0-41); Albumin Level 3.8 g/dL (3.5-5.2); Alkaline Phosphatase 91 U/L (40-130); Blood Urea Nitrogen 11 mg/dL (6-20); Calcium 9.9 mg/dL (8.5-10.5); Carbon Dioxide 24 mmol/L (22-29); Chloride 100 mmol/L (98-107); Creatinine Clr Calc Pharmacy 146.8058; Free T4 Free Thyroxine 1.35 ng/dL (0.82-1.77); Globulin 3.9 g/dL (1.3-4.6); Glucose 220 mg/dL (65-115); Osmolality Calculated 284 mOsm/kg (285-295); Sodium 134 mmol/L (136-145); Thyroid Stimulating Hormone 1.44 uIU/mL (0.27-4.20); Total Bilirubin 0.3 mg/dL (0.15-1.2); Total Protein 7.7 g/dL (6.6-8.7)
[2024-10-13 09:57] LABS: Anion Gap 14.5 (5-19); Aspartate Amino Transferase 24 U/L (0-40); Potassium 4.5 mmol/L (3.5-5.1)
[2024-10-13 10:11] VITALS: BP 129/82; PULSE 61; RESP 16; TEMP 36; O2SAT 95
[2024-10-13 10:14] LABS: Estmated Average Glucose 183
[2024-10-13 12:40] VITALS: BP 123/75; PULSE 61; RESP 17; TEMP 36.6; O2SAT 96
[2024-10-14] MEDS: acetaminophen 500 mg Tablet 1000 MG PO (08:31)
[2024-10-14] MEDS: IMMUNE GLOBULIN IV (09:07)
[2024-10-14] MEDS: [UNRECOGNIZED DRUG - OTHER] IV (09:07)
[2024-10-14 09:10] VITALS: BP 112/72; PULSE 66; RESP 16; TEMP 36.6; O2SAT 94
[2024-10-14 10:00] VITALS: BP 105/69; PULSE 58; RESP 16; TEMP 36.8; O2SAT 95
[2024-10-14 12:45] VITALS: BP 118/81; PULSE 63; RESP 16; RESP 17; TEMP 36.6; O2SAT 96
[2024-10-14 13:44] LABS: COMPLEMENT COMPONENT C3C 157 mg/dL (82-185); COMPLEMENT COMPONENT C4C 27 mg/dL (15-53)
[2024-10-14 15:33] LABS: COMPLEMENT, TOTAL (CH50) >60 U/mL (31-60)
== END 2024-10-14 15:52 | disposition home or self-care (01) ==
PROVIDERS: PCP Family Medicine; Visit Provider Specialist
DX: Z53.9 Procedure and treatment not carried out, unspecified reason; G61.81 Chronic inflammatory demyelinating polyneuritis; Z79.620 Long term (current) use of immunosuppressive biologic
CPT/HCPCS: 80053; 83036; 84439; 84443; 85025; 86160; 86162; 86235; 86255; 86376; 96365; 96366; J1561; J9999

== ENCOUNTER 2024-11-04 08:01 | Oncology outpatient (recurring) (ONCR) | payer OTHER, SELFPAY ==
[2024-11-03] MEDS: acetaminophen 500 mg Tablet 1000 MG PO (08:46)
[2024-11-03] MEDS: [UNRECOGNIZED DRUG - OTHER] IV (09:03)
[2024-11-03] MEDS: IMMUNE GLOBULIN IV (09:03)
[2024-11-03 13:03] VITALS: BP 122/77; PULSE 61; RESP 18; TEMP 36.2; O2SAT 97
[2024-11-04] MEDS: acetaminophen 500 mg Tablet 1000 MG PO (08:53)
[2024-11-04 09:09] VITALS: BP 129/83; PULSE 69; RESP 16; TEMP 36.1; O2SAT 96
[2024-11-04] MEDS: IMMUNE GLOBULIN IV (09:09)
[2024-11-04] MEDS: [UNRECOGNIZED DRUG - OTHER] IV (09:09)
[2024-11-04 11:13] VITALS: BP 120/79; PULSE 67; RESP 16; TEMP 36.3; O2SAT 95
[2024-11-04 12:37] VITALS: BP 126/79; PULSE 67; RESP 16; TEMP 36.3; O2SAT 95; O2SAT 98
== END 2024-11-04 15:11 | disposition home or self-care (01) ==
PROVIDERS: PCP Family Medicine; Visit Provider Specialist
DX: G61.81 Chronic inflammatory demyelinating polyneuritis (principal); Z79.620 Long term (current) use of immunosuppressive biologic
CPT/HCPCS: 96365; 96366; J1561; J9999

== ENCOUNTER 2024-11-24 07:58 | Oncology outpatient (recurring) (ONCR) | payer OTHER, SELFPAY ==
[2024-11-24 08:02] VITALS: BP 116/71; PULSE 86; RESP 17; TEMP 36.6; O2SAT 95
[2024-11-24] MEDS: acetaminophen 500 mg Tablet 1000 MG PO (08:15)
[2024-11-24 08:27] VITALS: BP 107/68; PULSE 79; RESP 17; TEMP 36.8; O2SAT 94
[2024-11-24] MEDS: [UNRECOGNIZED DRUG - OTHER] IV (08:27)
[2024-11-24] MEDS: IMMUNE GLOBULIN IV (08:27)
[2024-11-24 10:01] VITALS: BP 119/78; PULSE 73; RESP 17; TEMP 36.9; O2SAT 94
[2024-11-24 11:51] VITALS: BP 117/76; PULSE 65; RESP 17; TEMP 35.9; O2SAT 95
== END 2024-11-24 23:59 | disposition home or self-care (01) ==
PROVIDERS: PCP Family Medicine; Visit Provider Specialist
DX: G61.81 Chronic inflammatory demyelinating polyneuritis (principal); Z79.899 Other long term (current) drug therapy
CPT/HCPCS: 96365; 96366; J1561; J9999

== ENCOUNTER 2024-12-16 08:00 | Oncology outpatient (recurring) (ONCR) | payer OTHER, SELFPAY ==
[2024-12-15] MEDS: acetaminophen 500 mg Tablet 1000 MG PO (08:16)
[2024-12-15 08:22] VITALS: BP 129/74; PULSE 68; RESP 17; TEMP 36.8; O2SAT 95
[2024-12-15 09:00] VITALS: BP 118/74; PULSE 62; RESP 17; TEMP 36.9; O2SAT 94
[2024-12-15] MEDS: IMMUNE GLOBULIN IV (09:00)
[2024-12-15] MEDS: [UNRECOGNIZED DRUG - OTHER] IV (09:00)
[2024-12-15 12:24] VITALS: BP 125/77; PULSE 62; RESP 17; TEMP 36.8; O2SAT 97
[2024-12-16] MEDS: acetaminophen 500 mg Tablet 1000 MG PO (08:35)
[2024-12-16] MEDS: [UNRECOGNIZED DRUG - OTHER] IV (08:45)
[2024-12-16] MEDS: IMMUNE GLOBULIN IV (08:45)
[2024-12-16 08:47] VITALS: BP 132/77; PULSE 69; RESP 17; TEMP 36.9; O2SAT 97
[2024-12-16 10:05] VITALS: BP 127/78; PULSE 60; RESP 17; TEMP 36.9; O2SAT 96
[2024-12-16 12:13] VITALS: BP 127/78; PULSE 57; RESP 17; TEMP 36.8; O2SAT 98
== END 2024-12-16 23:59 | disposition home or self-care (01) ==
PROVIDERS: PCP Family Medicine; Visit Provider Specialist
DX: G61.81 Chronic inflammatory demyelinating polyneuritis (principal); Z79.620 Long term (current) use of immunosuppressive biologic
CPT/HCPCS: 96365; 96366; J1561; J9999

== ENCOUNTER → 2024-12-18 10:43 | Outpatient (BNVA) | payer OTHER, SELFPAY | PROVIDERS: PCP Family Medicine; Referring Provider Specialist; Visit Provider Internal Medicine Rheumatology | DX: M25.50 Pain in unspecified joint (principal); R76.8 Other specified abnormal immunological findings in serum | CPT/HCPCS: 36415; 82085; 82306; 82550; 83520; 84439; 84443; 85651; 86140; 86480; 86704; 86803; 87340 ==

== ENCOUNTER 2024-12-19 09:25 | Outpatient (CLI) | payer OTHER, SELFPAY | END 2024-12-19 09:26 | disposition home or self-care (01) | PROVIDERS: PCP Family Medicine; Visit Provider Internal Medicine Rheumatology | DX: R76.8 Other specified abnormal immunological findings in serum (principal) | CPT/HCPCS: 36415; 82657; 87517 ==

== ENCOUNTER 2025-01-06 08:00 | Oncology outpatient (recurring) (ONCR) | payer OTHER, SELFPAY ==
[2025-01-05] MEDS: acetaminophen 500 mg Tablet 1000 MG PO (08:13)
[2025-01-05 08:36] VITALS: BP 115/72; PULSE 68; RESP 18; TEMP 36.4; O2SAT 96
[2025-01-05] MEDS: [UNRECOGNIZED DRUG - OTHER] IV (08:36)
[2025-01-05] MEDS: IMMUNE GLOBULIN IV (08:36)
[2025-01-05 10:09] VITALS: BP 103/49; PULSE 62; RESP 18; TEMP 36.7; O2SAT 95
[2025-01-05 12:35] VITALS: BP 117/78; PULSE 63; RESP 17; TEMP 36.6; O2SAT 95
[2025-01-06 08:42] VITALS: BP 111/74; PULSE 69; RESP 18; TEMP 36.6; O2SAT 96
[2025-01-06] MEDS: [UNRECOGNIZED DRUG - OTHER] IV (08:42)
[2025-01-06] MEDS: IMMUNE GLOBULIN IV (08:42)
[2025-01-06] MEDS: acetaminophen 500 mg Tablet 1000 MG PO (08:44)
[2025-01-06 09:01] VITALS: BP 116/75; PULSE 66; RESP 17; TEMP 36.4; O2SAT 94
[2025-01-06 10:39] VITALS: BP 144/78; PULSE 60; RESP 18; TEMP 36.3; O2SAT 95
[2025-01-06 12:17] VITALS: BP 147/85; PULSE 65; RESP 17; TEMP 36.3; O2SAT 96
== END 2025-01-06 15:32 | disposition home or self-care (01) ==
PROVIDERS: PCP Family Medicine; Visit Provider Specialist
DX: Z53.9 Procedure and treatment not carried out, unspecified reason; G61.81 Chronic inflammatory demyelinating polyneuritis; Z79.899 Other long term (current) drug therapy
CPT/HCPCS: 96365; 96366; J1561; J9999

== ENCOUNTER 2025-01-26 07:56 | Oncology outpatient (recurring) (ONCR) | payer OTHER, SELFPAY ==
[2025-01-26] MEDS: acetaminophen 500 mg Tablet 1000 MG PO (08:26)
[2025-01-26 08:33] VITALS: BP 118/71; PULSE 74; RESP 18; TEMP 36.4; O2SAT 96
[2025-01-26] MEDS: IMMUNE GLOBULIN IV (08:33)
[2025-01-26] MEDS: [UNRECOGNIZED DRUG - OTHER] IV (08:33)
[2025-01-26 09:20] VITALS: BP 124/78; PULSE 76; RESP 18; TEMP 36.6; O2SAT 96
[2025-01-26 10:25] VITALS: BP 138/83; PULSE 61; RESP 18; TEMP 36.8; O2SAT 96
[2025-01-26 12:15] VITALS: BP 145/82; PULSE 65; RESP 16; TEMP 36.3; O2SAT 97
== END 2025-01-26 23:59 | disposition home or self-care (01) ==
PROVIDERS: PCP Family Medicine; Visit Provider Specialist
DX: G61.81 Chronic inflammatory demyelinating polyneuritis (principal); Z79.899 Other long term (current) drug therapy; Z79.620 Long term (current) use of immunosuppressive biologic
CPT/HCPCS: 96365; 96366; J1561; J9999

== ENCOUNTER 2025-01-27 08:04 | Oncology outpatient (recurring) (ONCR) | payer OTHER, SELFPAY ==
[2025-01-27 08:28] VITALS: BP 161/90; PULSE 70; RESP 16; TEMP 36.8; O2SAT 96
[2025-01-27 08:55] VITALS: BP 130/83; PULSE 80; RESP 16; TEMP 36.8
[2025-01-27] MEDS: [UNRECOGNIZED DRUG - OTHER] IV (08:55)
[2025-01-27] MEDS: IMMUNE GLOBULIN IV (08:55)
[2025-01-27 10:31] VITALS: BP 104/90; PULSE 69; RESP 16; TEMP 36.8; O2SAT 97
[2025-01-27 12:25] VITALS: BP 125/75; PULSE 66; RESP 16; TEMP 36.7; O2SAT 97
== END 2025-01-27 23:59 | disposition home or self-care (01) ==
PROVIDERS: PCP Family Medicine; Visit Provider Specialist
DX: G61.81 Chronic inflammatory demyelinating polyneuritis (principal); Z79.620 Long term (current) use of immunosuppressive biologic
CPT/HCPCS: 96365; 96366; 96375; J1561; J9999

== ENCOUNTER → 2025-02-03 14:50 | Outpatient (BNVA) | payer OTHER, SELFPAY | PROVIDERS: PCP Family Medicine; Visit Provider Podiatrist Foot & Ankle Surgery | DX: R76.8 Other specified abnormal immunological findings in serum (principal); G61.81 Chronic inflammatory demyelinating polyneuritis; K52.9 Noninfective gastroenteritis and colitis, unspecified; M06.00 Rheumatoid arthritis without rheumatoid factor, unspecified site; Z79.899 Other long term (current) drug therapy | CPT/HCPCS: 36415; 80053; 82085; 82248; 82550; 83516; 83519; 85025; 85651; 86140 ==

== ENCOUNTER 2025-02-17 08:00 | Oncology outpatient (recurring) (ONCR) | payer OTHER, SELFPAY ==
[2025-02-16 08:19] VITALS: BP 109/74; PULSE 70; RESP 17; TEMP 36.4; O2SAT 98
[2025-02-16] MEDS: IMMUNE GLOBULIN IV (08:27)
[2025-02-16] MEDS: [UNRECOGNIZED DRUG - OTHER] IV (08:27)
[2025-02-16 08:30] VITALS: BP 109/74; PULSE 70; RESP 17; TEMP 36.4; O2SAT 98
[2025-02-16 08:45] VITALS: BP 106/69; PULSE 66; RESP 17; TEMP 36.4; O2SAT 98
[2025-02-16 12:05] VITALS: BP 125/77; PULSE 59; RESP 17; TEMP 36.3; O2SAT 98
[2025-02-17 08:18] VITALS: BP 131/75; PULSE 85; RESP 17; TEMP 36.9; O2SAT 96
[2025-02-17] MEDS: IMMUNE GLOBULIN IV (08:20)
[2025-02-17 09:30] VITALS: BP 116/73; PULSE 70; RESP 17; TEMP 36.8; O2SAT 96
[2025-02-17 10:15] VITALS: BP 139/77; PULSE 68; RESP 17; TEMP 36.6; O2SAT 97
== END 2025-02-17 14:58 | disposition home or self-care (01) ==
PROVIDERS: PCP Family Medicine; Visit Provider Specialist
DX: G61.81 Chronic inflammatory demyelinating polyneuritis; Z79.620 Long term (current) use of immunosuppressive biologic; Z79.899 Other long term (current) drug therapy; Z53.9 Procedure and treatment not carried out, unspecified reason
CPT/HCPCS: 96365; 96366; J1561; J9999

== ENCOUNTER 2025-03-04 10:21 | Outpatient (CLI) | payer MEDICARE, SELFPAY ==
[2025-03-04 12:14] LABS: Alanine Aminotransferase 37 U/L (0-41); Albumin Level 3.9 g/dL (3.5-5.2); Alkaline Phosphatase 60 U/L (40-130); Aspartate Amino Transferase 43 U/L (0-40); Globulin 4.9 g/dL (1.3-4.6); Total Protein 8.8 g/dL (6.6-8.7)
== END 2025-03-04 10:22 | disposition home or self-care (01) ==
PROVIDERS: PCP Family Medicine; Visit Provider Internal Medicine Rheumatology
DX: Z79.899 Other long term (current) drug therapy (principal); R76.8 Other specified abnormal immunological findings in serum; M06.00 Rheumatoid arthritis without rheumatoid factor, unspecified site; M19.90 Unspecified osteoarthritis, unspecified site; M62.81 Muscle weakness (generalized)
CPT/HCPCS: 36415; 80076; 82085; 82550; 85651; 86140

== ENCOUNTER 2025-03-10 08:00 | Oncology outpatient (recurring) (ONCR) | payer MEDICARE, BC, SELFPAY ==
[2025-03-09] MEDS: [UNRECOGNIZED DRUG - OTHER] IV (08:37)
[2025-03-09] MEDS: IMMUNE GLOBULIN IV (08:37)
[2025-03-09 12:10] VITALS: BP 123/79; PULSE 57; RESP 16; TEMP 36.3; O2SAT 95
[2025-03-10] MEDS: IMMUNE GLOBULIN IV (08:20)
[2025-03-10] MEDS: [UNRECOGNIZED DRUG - OTHER] IV (08:20)
[2025-03-10 12:00] VITALS: BP 148/86; PULSE 74; RESP 17; TEMP 36.3; O2SAT 97
== END 2025-03-10 23:59 | disposition home or self-care (01) ==
PROVIDERS: PCP Family Medicine; Visit Provider Specialist
DX: G61.81 Chronic inflammatory demyelinating polyneuritis; Z79.899 Other long term (current) drug therapy; Z79.620 Long term (current) use of immunosuppressive biologic; Z53.9 Procedure and treatment not carried out, unspecified reason
CPT/HCPCS: 96365; 96366; J1561; J9999

== ENCOUNTER → 2025-03-19 11:57 | Outpatient (BNVA) | payer MEDICARE, BC, SELFPAY | PROVIDERS: PCP Family Medicine; Visit Provider Family Medicine | DX: R35.0 Frequency of micturition (principal); M79.10 Myalgia, unspecified site; E83.52 Hypercalcemia; Z51.81 Encounter for therapeutic drug level monitoring | CPT/HCPCS: 80053; 82310; 82550; 83970; 84153; 85025 ==

== ENCOUNTER 2025-04-01 07:46 | Oncology outpatient (recurring) (ONCR) | payer MEDICARE, BC, SELFPAY ==
[2025-03-31 09:12] VITALS: BP 121/74; PULSE 75; RESP 16; TEMP 36.4; O2SAT 96
[2025-03-31] MEDS: IMMUNE GLOBULIN IV (09:12)
[2025-03-31] MEDS: [UNRECOGNIZED DRUG - OTHER] IV (09:12)
[2025-03-31 09:28] VITALS: BP 115/72; PULSE 71; RESP 16; TEMP 36.3; O2SAT 94
[2025-03-31 09:43] VITALS: BP 107/70; PULSE 69; RESP 16; TEMP 36.3; O2SAT 95
[2025-03-31 09:59] VITALS: BP 117/77; PULSE 67; RESP 16; TEMP 36.2; O2SAT 96
[2025-03-31 15:05] VITALS: BP 125/75; PULSE 69; RESP 16; TEMP 36.4; O2SAT 96
[2025-04-01] MEDS: [UNRECOGNIZED DRUG - OTHER] IV (08:36)
[2025-04-01] MEDS: IMMUNE GLOBULIN IV (08:36)
[2025-04-01 13:54] VITALS: BP 127/81; PULSE 50; TEMP 36.3; O2SAT 93
== END 2025-04-01 23:59 | disposition home or self-care (01) ==
PROVIDERS: PCP Family Medicine; Visit Provider Specialist
DX: G61.81 Chronic inflammatory demyelinating polyneuritis (principal); Z79.899 Other long term (current) drug therapy
CPT/HCPCS: 96365; 96366; J1561; J9999

== ENCOUNTER → 2025-04-02 13:33 | Outpatient (BNVA) | payer MEDICARE, BC, SELFPAY | PROVIDERS: PCP Family Medicine; Visit Provider Family Medicine | DX: E11.9 Type 2 diabetes mellitus without complications (principal); R77.8 Other specified abnormalities of plasma proteins; E83.52 Hypercalcemia | CPT/HCPCS: 83036; 84155; 84165 ==

== ENCOUNTER → 2025-04-09 10:06 | Outpatient (BNVA) | payer MEDICARE, BC, SELFPAY | PROVIDERS: PCP Family Medicine; Visit Provider Family Medicine | DX: E11.9 Type 2 diabetes mellitus without complications (principal) | CPT/HCPCS: 82085; 82550; 83036; 85651; 86140 ==

== ENCOUNTER 2025-04-21 08:00 | Oncology outpatient (recurring) (ONCR) | payer MEDICARE, BC, SELFPAY ==
[2025-04-20] MEDS: [UNRECOGNIZED DRUG - OTHER] IV (09:11)
[2025-04-20] MEDS: IMMUNE GLOBULIN IV (09:11)
[2025-04-20 09:15] VITALS: BP 112/72; PULSE 65; RESP 17; TEMP 36.2; O2SAT 96
[2025-04-20 11:05] VITALS: BP 112/71; PULSE 61; RESP 16; TEMP 36.6; O2SAT 96
[2025-04-20 12:49] VITALS: BP 107/66; PULSE 60; TEMP 36.6; O2SAT 96
[2025-04-21 08:27] VITALS: BP 117/75; PULSE 72; RESP 16; TEMP 36.9; O2SAT 95
[2025-04-21] MEDS: IMMUNE GLOBULIN IV (08:27)
[2025-04-21] MEDS: [UNRECOGNIZED DRUG - OTHER] IV (08:27)
[2025-04-21 08:42] VITALS: BP 109/72; PULSE 70; RESP 16; TEMP 36.9; O2SAT 94
[2025-04-21 14:03] VITALS: BP 132/76; PULSE 65; TEMP 36.3; O2SAT 95
== END 2025-04-21 23:59 | disposition home or self-care (01) ==
PROVIDERS: PCP Family Medicine; Visit Provider Specialist
DX: G61.81 Chronic inflammatory demyelinating polyneuritis; Z79.899 Other long term (current) drug therapy; Z79.620 Long term (current) use of immunosuppressive biologic; Z53.9 Procedure and treatment not carried out, unspecified reason
CPT/HCPCS: 96365; 96366; J1561; J9999

== ENCOUNTER → 2025-04-30 08:20 | Outpatient (BNVA) | payer MEDICARE, BC, SELFPAY | PROVIDERS: PCP Family Medicine; Visit Provider Podiatrist Foot & Ankle Surgery | DX: E11.42 Type 2 diabetes mellitus with diabetic polyneuropathy (principal); L60.3 Nail dystrophy; M21.372 Foot drop, left foot; G62.9 Polyneuropathy, unspecified; Z79.4 Long term (current) use of insulin | CPT/HCPCS: 11721; 99213 ==

== ENCOUNTER → 2025-05-05 13:33 | Outpatient (BNVA) | payer MEDICARE, BC, SELFPAY | PROVIDERS: PCP Family Medicine; Visit Provider Internal Medicine Rheumatology | DX: R76.89 Other specified abnormal immunological findings in serum (principal); M62.81 Muscle weakness (generalized); K52.9 Noninfective gastroenteritis and colitis, unspecified; G61.81 Chronic inflammatory demyelinating polyneuritis; M05.79 Rheumatoid arthritis with rheumatoid factor of multiple sites without organ or systems involvement; D89.0 Polyclonal hypergammaglobulinemia; G72.49 Other inflammatory and immune myopathies, not elsewhere classified; K13.0 Diseases of lips; Z79.899 Other long term (current) drug therapy; E11.9 Type 2 diabetes mellitus without complications | CPT/HCPCS: 99215 ==

== ENCOUNTER → 2025-05-06 09:49 | Outpatient (BNVA) | payer MEDICARE, BC, SELFPAY | PROVIDERS: PCP Family Medicine; Visit Provider Family Medicine | DX: Z79.899 Other long term (current) drug therapy (principal); M62.81 Muscle weakness (generalized); M79.7 Fibromyalgia | CPT/HCPCS: 82085; 82550 ==

== ENCOUNTER 2025-05-12 08:00 | Oncology outpatient (recurring) (ONCR) | payer MEDICARE, BC, SELFPAY ==
[2025-05-11] MEDS: [UNRECOGNIZED DRUG - OTHER] IV (08:58)
[2025-05-11] MEDS: IMMUNE GLOBULIN IV (08:58)
[2025-05-11 09:00] VITALS: BP 111/73; PULSE 70; O2SAT 95
[2025-05-11 09:17] VITALS: BP 107/69; PULSE 64; TEMP 36.5; O2SAT 94
[2025-05-11 12:35] VITALS: BP 128/82; PULSE 65; RESP 17; TEMP 36.3; O2SAT 96
[2025-05-11 13:27] VITALS: BP 128/82; PULSE 65; RESP 17; TEMP 36.3; O2SAT 96
[2025-05-12 08:20] VITALS: BP 114/71; PULSE 74; RESP 17; TEMP 37; O2SAT 93
[2025-05-12] MEDS: IMMUNE GLOBULIN IV (08:20)
[2025-05-12] MEDS: [UNRECOGNIZED DRUG - OTHER] IV (08:20)
[2025-05-12 08:35] VITALS: BP 113/71; PULSE 66; RESP 17; TEMP 36.8; O2SAT 94
[2025-05-12 12:02] VITALS: BP 125/75; PULSE 62; RESP 17; TEMP 36.4; O2SAT 96
== END 2025-05-12 23:59 | disposition home or self-care (01) ==
PROVIDERS: PCP Family Medicine; Visit Provider Specialist
DX: G61.81 Chronic inflammatory demyelinating polyneuritis; Z79.899 Other long term (current) drug therapy; Z53.9 Procedure and treatment not carried out, unspecified reason
CPT/HCPCS: 96365; 96366; J1561; J9999

== ENCOUNTER 2025-06-02 07:43 | Oncology outpatient (recurring) (ONCR) | payer MEDICARE, BC, SELFPAY ==
[2025-06-01 08:30] VITALS: BP 120/70; PULSE 69; RESP 17; TEMP 36.8; O2SAT 94
[2025-06-01] MEDS: IMMUNE GLOBULIN IV (08:30)
[2025-06-01] MEDS: [UNRECOGNIZED DRUG - OTHER] IV (08:30)
[2025-06-01 08:45] VITALS: BP 118/69; PULSE 67; RESP 17; TEMP 36.6; O2SAT 93
[2025-06-01 12:14] VITALS: BP 122/76; PULSE 61; RESP 17; TEMP 36.6; O2SAT 96
[2025-06-02] MEDS: IMMUNE GLOBULIN IV (08:07)
[2025-06-02] MEDS: [UNRECOGNIZED DRUG - OTHER] IV (08:07)
[2025-06-02 08:08] VITALS: BP 115/73; PULSE 64; RESP 17; TEMP 36.7; O2SAT 95
[2025-06-02 08:23] VITALS: BP 116/71; PULSE 62; RESP 17; TEMP 36.7; O2SAT 94
[2025-06-02 11:23] VITALS: BP 137/80; PULSE 62; RESP 17; TEMP 36.1; O2SAT 93
== END 2025-06-02 23:59 | disposition home or self-care (01) ==
PROVIDERS: PCP Family Medicine; Visit Provider Specialist
DX: G61.81 Chronic inflammatory demyelinating polyneuritis (principal); Z79.620 Long term (current) use of immunosuppressive biologic; Z79.899 Other long term (current) drug therapy
CPT/HCPCS: 96365; 96366; J1561; J9999

== ENCOUNTER → 2025-06-10 13:16 | Outpatient (BNVA) | payer MEDICARE, BC, SELFPAY | PROVIDERS: PCP Family Medicine; Visit Provider Specialist | DX: G61.81 Chronic inflammatory demyelinating polyneuritis (principal); E11.9 Type 2 diabetes mellitus without complications; R76.89 Other specified abnormal immunological findings in serum; K52.9 Noninfective gastroenteritis and colitis, unspecified; Z79.4 Long term (current) use of insulin | CPT/HCPCS: 99215 ==

== ENCOUNTER 2025-06-16 12:45 | Oncology outpatient (recurring) (ONCR) | payer MEDICARE, BC, SELFPAY | END 2025-06-28 23:59 | disposition home or self-care (01) | LOC: ONCMED 12:47 | PROVIDERS: PCP Family Medicine; Referring Provider Specialist; Visit Provider Internal Medicine Pulmonary Disease | DX: G47.33 Obstructive sleep apnea (adult) (pediatric) (principal) | CPT/HCPCS: G0399 ==

== ENCOUNTER → 2025-07-13 14:49 | Outpatient (BNVA) | payer MEDICARE, BC, SELFPAY | PROVIDERS: PCP Family Medicine; Visit Provider Internal Medicine Rheumatology | DX: R76.89 Other specified abnormal immunological findings in serum (principal); M62.81 Muscle weakness (generalized); K52.9 Noninfective gastroenteritis and colitis, unspecified; G61.81 Chronic inflammatory demyelinating polyneuritis; M05.79 Rheumatoid arthritis with rheumatoid factor of multiple sites without organ or systems involvement; D89.0 Polyclonal hypergammaglobulinemia; G72.49 Other inflammatory and immune myopathies, not elsewhere classified; K13.0 Diseases of lips; K50.90 Crohn's disease, unspecified, without complications; E11.9 Type 2 diabetes mellitus without complications | CPT/HCPCS: 99215 ==

== ENCOUNTER → 2025-07-15 08:48 | Outpatient (BNVA) | payer MEDICARE, BC, SELFPAY | PROVIDERS: PCP Family Medicine; Visit Provider Nurse Practitioner Family | DX: I11.0 Hypertensive heart disease with heart failure (principal); I50.20 Unspecified systolic (congestive) heart failure; I49.1 Atrial premature depolarization; I25.10 Atherosclerotic heart disease of native coronary artery without angina pectoris; I49.3 Ventricular premature depolarization | CPT/HCPCS: 99214 ==

== ENCOUNTER → 2025-07-16 07:37 | Outpatient (BNVA) | payer MEDICARE, BC, SELFPAY | PROVIDERS: PCP Family Medicine; Visit Provider Podiatrist Foot & Ankle Surgery | DX: E11.8 Type 2 diabetes mellitus with unspecified complications (principal); L60.3 Nail dystrophy; M21.372 Foot drop, left foot; E11.42 Type 2 diabetes mellitus with diabetic polyneuropathy; G62.9 Polyneuropathy, unspecified; Z79.4 Long term (current) use of insulin | CPT/HCPCS: 11721 ==

== ENCOUNTER 2025-07-21 07:42 | Oncology outpatient (recurring) (ONCR) | payer MEDICARE, BC, SELFPAY ==
[2025-07-09] VITALS (9 sets, daily range): BP systolic 102–137; BP diastolic 65–78; PULSE 61–76; RESP 16–17; TEMP 36.3–36.9; O2SAT 94–96
[2025-07-09 08:31] LABS: Hematocrit 39.1 % (37-53); Hemoglobin 13.80 g/dL (11.27-16.99); Mean Corpuscular HGB Conc 35.3 g/dL (30-55); Mean Corpuscular Hemoglobin 35.9 pg (27-33); Mean Corpuscular Volume 101.8 fl (82-101); Nucleated Red Blood Cells % 0 %; Platelet Count 249 10^3/cmm (157-399); Red Blood Count 3.84 10^6/uL (3.85-5.65); White Blood Count 3.29 10^3/uL (3.29-11.43)
[2025-07-09] MEDS: methylPREDNISolone sod succ 40 mg/mL INJ IVP (08:54)
[2025-07-09] MEDS: diphenhydrAMINE 50 mg/mL SDV 1mL 25 MG IVP (08:54)
[2025-07-09 08:55] LABS: Alanine Aminotransferase 30 U/L (0-41); Albumin Level 3.8 g/dL (3.5-5.2); Alkaline Phosphatase 73 U/L (40-130); Aspartate Amino Transferase 27 U/L (0-40); Globulin 3.5 g/dL (1.3-4.6); Total Protein 7.3 g/dL (6.6-8.7)
[2025-07-09] MEDS: rituximab-pvvr 1,000 MG in sodium chloride 0.9% 500 ML 30 MG IV (09:27)
[2025-07-21] MEDS: methylPREDNISolone sod succ 40 mg/mL INJ IVP (08:41)
[2025-07-21] MEDS: diphenhydrAMINE 50 mg/mL SDV 1mL 25 MG IVP (08:46)
[2025-07-21 08:54] VITALS: BP 118/74; PULSE 64; RESP 18; TEMP 36.7; O2SAT 93
[2025-07-21] MEDS: rituximab-pvvr 1,000 MG in sodium chloride 0.9% 500 ML 65 MG IV (09:20)
[2025-07-21 09:23] VITALS: BP 116/74; PULSE 77; RESP 17; TEMP 36.6; O2SAT 94
[2025-07-21 09:53] VITALS: BP 118/74; PULSE 75; RESP 17; TEMP 36.6; O2SAT 93
[2025-07-21 10:23] VITALS: BP 119/75; PULSE 74; RESP 16; TEMP 36.6; O2SAT 93
[2025-07-21 10:53] VITALS: BP 115/73; PULSE 76; RESP 16; TEMP 36.5; O2SAT 92
[2025-07-21 12:37] VITALS: BP 112/77; PULSE 77; RESP 17; TEMP 36.9; O2SAT 95
== END 2025-07-27 23:59 | disposition home or self-care (01) ==
PROVIDERS: Internal Medicine Rheumatology; PCP Family Medicine; Visit Provider Internal Medicine Pulmonary Disease
DX: M05.79 Rheumatoid arthritis with rheumatoid factor of multiple sites without organ or systems involvement (principal); Z79.899 Other long term (current) drug therapy
CPT/HCPCS: 80076; 82565; 85025; 85651; 86140; 96375; 96413; 96415; J1200; J2919; J7040; J7050; J9999; Q5119